=== PATIENT | female | born 1965 | race Caucasian/White ===

== ENCOUNTER 2016-11-16 15:40 | Emergency (ER) | payer OTHER ==
[~2016-11-16] VITALS: Ht 157.5 cm; Wt 60.0 kg
[~2016-11-16 15:40] MED LIST: IMOD2TAB PO; LEVO.025 PO; OMEP20TA PO; PERC7.5T13 PO; SERO150T PO; TOPI50TA4 PO; XANA1TAB6 PO
[2016-11-16 15:41] VITALS: BP 164/83; PULSE 101; RESP 17; TEMP 98.2; O2SAT 97
--- NOTE | 2016-11-16 17:31 | PD ---
HPI Chief Complaint: Complaint Time Seen by Provider: 17:31 Travel History International Travel<30 days: No Contact w/Intl Traveler<30days: No Traveled to known affect area: No History of Present Illness HPI 51 year-old female history of COPD, chronic pain, neuropathy, CAD, bipolar disorder presents emergency department for evaluation of urinary symptoms 2 weeks. Patient has had frequency, urgency, and burning. She now has low back pain. She has also had nausea and vomiting. Patient has been taking Bactrim and her symptoms have only worsened. She also reports a migraine headache. Denies chest pain or tightness. No difficulty breathing. No diarrhea. Uncertain if hematuria. No other symptoms to report. PFSH Past Medical History Arthritis: Yes Blood Disorders: No Bipolar Disorder: Yes Anxiety: Yes Depression: Yes Heart Rhythm Problems: Yes (murmur in past) Cancer: Yes (OVARIAN, CERVICAL) Cardiac Catheterization: No Cardiovascular Problems: Yes (mitral valve prolapse) High Cholesterol: Yes Chemotherapy: Yes Congestive Heart Failure: No Diabetes: No Diminished Hearing: No Endocrine: Yes (HYPOGLYCEMIA) Gastrointestinal Disorders: Yes GERD: Yes Genitourinary: Yes (PROBLEM WITH INCONTINENCE) Headaches: Yes Immune Disorder: No Musculoskeletal: Yes Neurologic: Yes Psychiatric: Yes Reproductive: No Respiratory: Yes ("LOTS OF MUCUS IN THROAT." PER PATIENT) Migraines: Yes Radiation Therapy: No Thyroid Disease: Yes Ulcer: Yes (STOMACH) Menopausal: Yes : 4 Para: 3 Miscarriage: 1 Tubal Ligation: Yes Past Surgical History Abdominal Surgery: Yes AICD: No Body Medical Devices: NOSE RING NOT WITH PATIENT Cardiac Surgery: No Coronary Artery Bypass Graft: No Ear Surgery: No Endocrine Surgery: No Eye Surgery: No Gynecologic Surgery: Yes Hysterectomy: Yes Neurologic Surgery: No Oral Surgery: No Pacemaker: No Thoracic Surgery: No Other Surgery: Yes Social History Alcohol Use: Yes (6 BEERS DURING THE WEEK- 12 BEERS ON THE WEEKEND PER PT) Tobacco Use: Yes ( 1/2 PPD) Substance Use: No (ADMITS TO MARIJUANA) Allergies-Medications (Allergen,Severity, Reaction): Coded Allergies: Lortab (Verified Allergy, Severe, 06/24/16) Phenergan (Verified Allergy, Severe, 06/24/16) Reported Meds & Prescriptions Reported Meds & Active Scripts Active Imodium A-D (Loperamide HCl) 2 Mg Tab 4 Mg PO ONCE DO NOT EXCEED 8 CAPSULES/TABLETS 24 HOURS Reported Xanax 1 mg (Alprazolam) Alprazolam 1 mg Tab 1 Tab PO Q6H PRN Percocet 7.5-325 mg (Oxycodone-Acetaminophen 7.5-325 mg) 1 Tab 1 Tab PO Q6H PRN Topamax (Topiramate) 50 Mg Tab 50 Mg PO BID Omeprazole 20 mg (Omeprazole) 20 Mg Tab 1 Tab PO DAILY Seroquel XR 150 mg (Quetiapine Fumarate) 150 Mg Tab 150 Mg PO DAILY Levothyroxine 25 mcg (Levothyroxine Sodium) 25 Mcg Tab 25 Mcg PO DAILY Review of Systems Except as stated in HPI: all other systems reviewed are Neg Physical Exam Narrative GENERAL: Well-nourished female patient, in no acute distress SKIN: Warm and dry. HEAD: Atraumatic. Normocephalic. EYES: Pupils equal and round. No scleral icterus. No injection or drainage. ENT: No nasal bleeding or discharge. Mucous membranes pink and moist. NECK: Trachea midline. No JVD. CARDIOVASCULAR: Elevated rate and rhythm. No murmur appreciated. RESPIRATORY: No accessory muscle use. Coarse to auscultation. Breath sounds equal bilaterally. GASTROINTESTINAL: Abdomen soft, nondistended. Suprapubic tenderness to palpation. Hepatic and splenic margins not palpable. MUSCULOSKELETAL: No obvious deformities. No clubbing. No cyanosis. No edema. NEUROLOGICAL: Awake and alert. No obvious cranial nerve deficits. Motor grossly within normal limits. Normal speech. PSYCHIATRIC: Appropriate mood and affect; insight and judgment normal. Data Data Last Documented VS Vital Signs Date Time Temp Pulse Resp B/P Pulse Ox O2 Delivery O2 Flow Rate FiO2 11/16/16 15:41 98.2 101 17 164/83 97 Orders Basic Metabolic Panel (Bmp) (11/16/16 17:30) Complete Blood Count With Diff (11/16/16 17:30) Urinalysis - C+S If Indicated (11/16/16 17:30) Urine Culture (11/16/16 17:45) Labs Laboratory Tests Test 11/16/16 17:45 White Blood Count 11.3 TH/MM3 Red Blood Count 4.72 MIL/MM3 Hemoglobin 15.6 GM/DL Hematocrit 45.3 % Mean Corpuscular Volume 96.0 FL Mean Corpuscular Hemoglobin 33.1 PG Mean Corpuscular Hemoglobin 34.5 % Concent Red Cell Distribution Width 12.4 % Platelet Count 335 TH/MM3 Mean Platelet Volume 7.5 FL Neutrophils (%) (Auto) 60.5 % Lymphocytes (%) (Auto) 28.8 % Monocytes (%) (Auto) 8.9 % Eosinophils (%) (Auto) 1.3 % Basophils (%) (Auto) 0.5 % Neutrophils # (Auto) 6.8 TH/MM3 Lymphocytes # (Auto) 3.3 TH/MM3 Monocytes # (Auto) 1.0 TH/MM3 Eosinophils # (Auto) 0.1 TH/MM3 Basophils # (Auto) 0.1 TH/MM3 CBC Comment DIFF FINAL Differential Comment Urine Color YELLOW Urine Turbidity HAZY Urine pH 6.0 Urine Specific [place] 1.008 Urine Protein NEG mg/dL Urine Glucose (UA) NEG mg/dL Urine Ketones NEG mg/dL Urine Occult Blood TRACE Urine Nitrite NEG Urine Bilirubin NEG Urine Urobilinogen LESS THAN 2.0 MG/DL Urine Leukocyte Esterase LARGE Urine RBC 3 /hpf Urine WBC /hpf Urine WBC Clumps FEW Urine Squamous Epithelial <1 /hpf Cells Urine Bacteria FEW /hpf Microscopic Urinalysis Comment CULTURE INDICATED Sodium Level 139 MEQ/L Potassium Level 3.8 MEQ/L Chloride Level 105 MEQ/L Carbon Dioxide Level 22.3 MEQ/L Anion Gap 12 MEQ/L Blood Urea Nitrogen 9 MG/DL Creatinine 0.91 MG/DL Estimat Glomerular Filtration 65 ML/MIN Rate Random Glucose 86 MG/DL Calcium Level 9.4 MG/DL [facility] Medical Decision Making Medical Screen Exam Complete: Yes Emergency Medical Condition: Yes Medical Record Reviewed: Yes Differential Diagnosis Cystitis versus vaginitis versus pyelonephritis versus STD versus colitis Narrative Course 51-year-old female presents to emergency department for evaluation. Workup was initiated in triage. Once a medical bed becomes available, patient will be transferred and care assumed by the provider. Diagnosis Primary Impression: Dysuria Disposition: 07 AGAINST MEDICAL ADVICE Condition: Stable Emily Mcfarlane Nov 16, 2016 17:31
[2016-11-16 18:16] LABS: AUTOMATED NEUTROPHIL # 6.8 TH/MM3 (1.8-7.7); BASOPHIL # 0.1 TH/MM3 (0-0.2); BASOPHIL % 0.5 % (0.0-2.0); EOSINOPHIL # 0.1 TH/MM3 (0-0.4); EOSINOPHIL % 1.3 % (0.0-4.0); HEMATOCRIT 45.3 % (35.0-46.0); HEMO FLAGS DIFF FINAL; LYMPH % 28.8 % (9.0-44.0); LYMPHOCYTE # 3.3 TH/MM3 (1.0-4.8); MEAN CORPUSCULAR HEMOGLOBIN 33.1 PG (27.0-34.0); MEAN CORPUSCULAR HGB CONC 34.5 % (32.0-36.0); MONO % 8.9 % (0.0-8.0); NEUT % 60.5 % (16.0-70.0); PLATELET COUNT 335 TH/MM3 (150-450); RED BLOOD COUNT 4.72 MIL/MM3 (4.00-5.30); RED CELL DISTRIBUTION WIDTH 12.4 % (11.6-17.2); WHITE BLOOD COUNT 11.3 TH/MM3 (4.0-11.0)
[2016-11-16 18:26] LABS: BACTERIA, URINE FEW /hpf; BLOOD, URINE TRACE (NEG); COMMENT (UR) CULTURE INDICATED; CULTURE IF INDICATED CULTURE INDICATED; GLUCOSE,URINE NEG (NEG); KETONE, URINE NEG (NEG); NITRITE,URINE NEG (NEG); SQUAMOUS EPITHELIAL CELL URINE <1 /hpf (0-5); URINE COLOR YELLOW (YELLW/STRAW)
[2016-11-16 18:33] LABS: BICARBONATE 22.3 MEQ/L (21.0-32.0); POTASSIUM 3.8 MEQ/L (3.5-5.1)
== END 2016-11-16 22:05 | disposition left against medical advice (07) ==
LOC: NETRI 15:40
DX: R30.0 Dysuria (principal); B96.20 Unspecified Escherichia coli [E. coli] as the cause of diseases classified elsewhere; I25.10 Atherosclerotic heart disease of native coronary artery without angina pectoris; J44.9 Chronic obstructive pulmonary disease, unspecified; F31.9 Bipolar disorder, unspecified; E78.00 Pure hypercholesterolemia, unspecified; E16.2 Hypoglycemia, unspecified; F41.8 Other specified anxiety disorders; F17.210 Nicotine dependence, cigarettes, uncomplicated; F10.10 Alcohol abuse, uncomplicated
CPT/HCPCS: 80048; 81001; 85025; 87077; 87086; 87186; 99283

== ENCOUNTER 2017-04-20 12:38 | Emergency (ER) | payer OTHER ==
[~2017-04-20] VITALS: Ht 157.5 cm; Wt 66.0 kg
[2017-04-20 12:52] VITALS: BP 113/70; PULSE 87; RESP 16; TEMP 98.7; O2SAT 93
[2017-04-20] MEDS ORDERED: PERC7.5T13 PO (13:13)
[2017-04-20] MEDS ORDERED: XANA1TAB2 PO (13:13)
[2017-04-20] MEDS ORDERED: TOPA50TA7 PO (13:13)
[2017-04-20] MEDS ORDERED: NEUR100C PO (13:13)
[2017-04-20] MEDS ORDERED: SERO300T PO (13:13)
--- NOTE | 2017-04-20 13:36 | PD ---
HPI Chief Complaint: GI Complaint Time Seen by Provider: 13:31 Travel History International Travel<30 days: No Contact w/Intl Traveler<30days: No Traveled to known affect area: No History of Present Illness HPI This 51-year-old female says she been feeling weak and tired for about a week. Says a week ago she had some lab work done at Dr. Colón's office and was told her white count was high and is concerned she might have leukemia. She has a history of neck pain and has apparently pinched nerve C5 through 7 bulging disks. She takes Percocet 4 times a day as well as Seroquel and Topamax and Xanax area she says she feels tired all the time. She smokes half a pack a day. She has been a heavy drinker in the past. She says it recently she is not able to drink very much. She says that her abdomen has become quite distended over the past month. She says she drools a lot. She noted some blood in the pool but says it was a fairly small amount. PFSH Past Medical History Arthritis: Yes Blood Disorders: No Bipolar Disorder: Yes Anxiety: Yes Depression: Yes Heart Rhythm Problems: Yes (murmur in past) Cancer: Yes (OVARIAN, CERVICAL) Cardiac Catheterization: No Cardiovascular Problems: Yes (mitral valve prolapse) High Cholesterol: Yes Chemotherapy: Yes Chest Pain: Yes Congestive Heart Failure: No COPD: Yes Diabetes: No Diminished Hearing: No Diverticulitis: Yes (& COLITIS) Endocrine: Yes (HYPOGLYCEMIA) Gastrointestinal Disorders: Yes GERD: Yes Genitourinary: Yes (PROBLEM WITH INCONTINENCE) Headaches: Yes Immune Disorder: No Medical other: Yes (NECK NERVE DAMAGE, DECREASE CIRCULATION LEFT ARM) Musculoskeletal: Yes Neurologic: Yes Psychiatric: Yes Reproductive: No Respiratory: Yes ("LOTS OF MUCUS IN THROAT." PER PATIENT) Migraines: Yes Radiation Therapy: No Thyroid Disease: Yes Ulcer: Yes (STOMACH) ?: Not Menopausal: Yes : 4 Para: 3 Miscarriage: 1 Tubal Ligation: Yes Past Surgical History Abdominal Surgery: Yes AICD: No Body Medical Devices: NOSE RING NOT WITH PATIENT Cardiac Surgery: No Coronary Artery Bypass Graft: No Ear Surgery: No Endocrine Surgery: No Eye Surgery: No Gynecologic Surgery: Yes Hysterectomy: Yes Neurologic Surgery: No Oral Surgery: No Pacemaker: No Thoracic Surgery: No Other Surgery: Yes Family History Family Myocardial Infarction: Yes (father ) Social History Alcohol Use: Yes (6 BEERS DURING THE WEEK- 12 BEERS ON THE WEEKEND PER PT) Tobacco Use: Yes ( 1/2 PPD) Substance Use: Yes (MARIJUANA) Allergies-Medications (Allergen,Severity, Reaction): Coded Allergies: Lortab (Verified Allergy, Intermediate, ITCHING, 04/20/17) Phenergan (Verified Allergy, Intermediate, ITCHING, 04/20/17) Reported Meds & Prescriptions Reported Meds & Active Scripts Active Reported Levothyroxine (Levothyroxine Sodium) 25 Mcg Tab 25 Mcg PO DAILY Percocet (Oxycodone-Acetaminophen) 7.5-325 mg Tab 1 Tab PO Q6H PRN Seroquel (Quetiapine Fumarate) 300 Mg Tab 300 Mg PO HS Topamax (Topiramate) 50 Mg Tab 50 Mg PO TID Neurontin (Gabapentin) 100 Mg Cap 100 Mg PO TID Xanax (Alprazolam) 1 Mg Tab 1 Mg PO BID PRN Review of Systems General / Constitutional: No: Fever, Chills Eyes: No: Diploplia HENT: No: Headaches, Lightheadedness Cardiovascular: No: Chest Pain or Discomfort, Palpitations Respiratory: Positive: Cough Gastrointestinal: Positive: Nausea, No: Vomiting, Diarrhea Genitourinary: No: Frequency Musculoskeletal: Positive: Myalgias, Pain Skin: No Rash, No Itching Neurologic: Positive: Weakness, Dizziness Endocrine: No: Heat Intolerance, Cold Intolerance Hematologic/Lymphatic: No: Easy Bruising Physical Exam Narrative GENERAL: Well-developed female SKIN: Focused skin assessment warm/dry. HEAD: Atraumatic. Normocephalic. EYES: Pupils equal and round. No scleral icterus. No injection or drainage. ENT: No nasal bleeding or discharge. Mucous membranes pink and moist. NECK: Trachea midline. No JVD. CARDIOVASCULAR: Regular rate and rhythm. No murmur appreciated. RESPIRATORY: No accessory muscle use. Clear to auscultation. Breath sounds equal bilaterally. GASTROINTESTINAL: Abdomen is distended no discrete masses felt Hepatic and splenic margins not palpable. On rectal exam stool is brown and guaiac negative MUSCULOSKELETAL: No obvious deformities. No clubbing. No cyanosis. No edema. NEUROLOGICAL: Awake and alert. No obvious cranial nerve deficits. Motor grossly within normal limits. Normal speech. PSYCHIATRIC: Appropriate mood and affect; insight and judgment normal. Data Data Last Documented VS Vital Signs Date Time Temp Pulse Resp B/P Pulse Ox O2 Delivery O2 Flow Rate FiO2 04/20/17 12:52 98.7 87 16 113/70 93 Orders Complete Blood Count With Diff (04/20/17 13:31) Comprehensive Metabolic Panel (04/20/17 13:31) Urinalysis - C+S If Indicated (04/20/17 13:31) Magnesium (Mg) (04/20/17 13:31) Thyroid Stimulating Hormone (04/20/17 13:31) Chest, Single Ap (04/20/17 13:31) Ct Abd/Pel W Iv Contrast(Rout) (04/20/17 13:31) Labs Laboratory Tests Test 04/20/17 04/20/17 13:25 13:40 Urine Collection Type CLEAN CATCH Urine Color YELLOW Urine Turbidity CLEAR Urine pH 5.5 Urine Specific [place] 1.009 Urine Protein NEG mg/dL Urine Glucose (UA) NEG mg/dL Urine Ketones NEG mg/dL Urine Occult Blood NEG Urine Nitrite NEG Urine Bilirubin NEG Urine Leukocyte Esterase TRACE Urine WBC 0-2 /hpf Urine Squamous Epithelial 0-5 /hpf Cells Microscopic Urinalysis Comment CULT NOT INDICATED White Blood Count 9.9 TH/MM3 Red Blood Count 4.22 MIL/MM3 Hemoglobin 13.6 GM/DL Hematocrit 41.1 % Mean Corpuscular Volume 97.5 FL Mean Corpuscular Hemoglobin 32.2 PG Mean Corpuscular Hemoglobin 33.0 % Concent Red Cell Distribution Width 12.3 % Platelet Count 255 TH/MM3 Mean Platelet Volume 8.0 FL Neutrophils (%) (Auto) 58.0 % Lymphocytes (%) (Auto) 30.0 % Monocytes (%) (Auto) 10.0 % Eosinophils (%) (Auto) 1.4 % Basophils (%) (Auto) 0.6 % Neutrophils # (Auto) 5.7 TH/MM3 Lymphocytes # (Auto) 3.0 TH/MM3 Monocytes # (Auto) 1.0 TH/MM3 Eosinophils # (Auto) 0.1 TH/MM3 Basophils # (Auto) 0.1 TH/MM3 CBC Comment DIFF FINAL Differential Comment Sodium Level 143 MEQ/L Potassium Level 3.8 MEQ/L Chloride Level 108 MEQ/L Carbon Dioxide Level 23.9 MEQ/L Anion Gap 11 MEQ/L Blood Urea Nitrogen 10 MG/DL Creatinine 0.69 MG/DL Estimat Glomerular Filtration 89 ML/MIN Rate Random Glucose 89 MG/DL Calcium Level 8.8 MG/DL Magnesium Level 2.5 MG/DL Total Bilirubin 0.2 MG/DL Aspartate Amino Transf 23 U/L (AST/SGOT) Alanine Aminotransferase 26 U/L (ALT/SGPT) Alkaline Phosphatase 93 U/L Total Protein 7.1 GM/DL Albumin 3.6 GM/DL Thyroid Stimulating Hormone 4.320 uIU/ML 3rd Gen [facility] Medical Decision Making Medical Screen Exam Complete: Yes Emergency Medical Condition: Yes Medical Record Reviewed: Yes Differential Diagnosis Differential includes electrolyte imbalance, medication, hypothyroidism Narrative Course Patient's TSH is elevated consistent with hypothyroidism. She is on 0.25 daily. Ambien recommend that she take one half tablets a day and follow-up with her own medical doctor. I had originally ordered a T scan of her abdomen because she had told me that her abdomen had become distended over the past month area she went to the CT scan and the IV infiltrated so the scan was not performed. Her blood work has come back normal including liver function tests so I will defer the scan for now. Diagnosis Primary Impression: Hypothyroidism Qualified Code: E03.9 - Hypothyroidism, unspecified type Additional Instructions: Increase Synthroid to one and one half tablets daily Disposition: 01 DISCHARGE HOME Condition: Stable Abdirashid Myers MD Apr 20, 2017 13:36
[2017-04-20] MEDS ORDERED: LEVO25TA4 PO (13:48)
[2017-04-20 13:54] LABS: AUTOMATED NEUTROPHIL # 5.7 TH/MM3 (1.8-7.7); BASOPHIL # 0.1 TH/MM3 (0-0.2); BASOPHIL % 0.6 % (0.0-2.0); EOSINOPHIL # 0.1 TH/MM3 (0-0.4); EOSINOPHIL % 1.4 % (0.0-4.0); HEMATOCRIT 41.1 % (35.0-46.0); HEMO FLAGS DIFF FINAL; MEAN CELL VOLUME 97.5 FL (80.0-100.0); MEAN CORPUSCULAR HEMOGLOBIN 32.2 PG (27.0-34.0); PLATELET COUNT 255 TH/MM3 (150-450); RED BLOOD COUNT 4.22 MIL/MM3 (4.00-5.30); RED CELL DISTRIBUTION WIDTH 12.3 % (11.6-17.2); WHITE BLOOD COUNT 9.9 TH/MM3 (4.0-11.0)
[2017-04-20 13:59] LABS: BLOOD, URINE NEG (NEG); GLUCOSE,URINE NEG (NEG); KETONE, URINE NEG (NEG); NITRITE,URINE NEG (NEG); PH, URINE 5.5 (5.0-8.5)
[2017-04-20 14:05] LABS: CHLORIDE 108 MEQ/L (98-107); POTASSIUM 3.8 MEQ/L (3.5-5.1); SODIUM (NA) 143 MEQ/L (136-145)
[2017-04-20 14:10] LABS: ANION GAP 11 MEQ/L (5-15); BICARBONATE 23.9 MEQ/L (21.0-32.0); BLOOD UREA NITROGEN 10 MG/DL (7-18); MAGNESIUM 2.5 MG/DL (1.5-2.5)
[2017-04-20 14:13] LABS: ALT (GPT) 26 U/L (10-53); AST (GOT) 23 U/L (15-37); GLOMERULAR FILTRATION RATE 89 ML/MIN (>89)
[2017-04-20 14:15] LABS: TOTAL BILIRUBIN ADULT 0.2 MG/DL (0.2-1.0)
[2017-04-20 14:16] LABS: ALKALINE PHOSPHATASE 93 U/L (45-117)
--- NOTE | 2017-04-20 14:37 | RADRPT ---
EXAM DATE/TIME: 04/20/2017 14:19 [place] COMPARISON: CHEST SINGLE AP, June 24, 2016, 11:20. INDICATIONS : Cough, chest pain, hemoptysis. MEDICAL HISTORY : smoker SURGICAL HISTORY : None. ENCOUNTER: Initial ACUITY: 1 week PAIN SCORE: 6/10 LOCATION: Bilateral chest FINDINGS: A single view of the chest demonstrates the lungs to be symmetrically aerated without evidence of mas s, infiltrate or effusion. The cardiomediastinal contours are unremarkable. Osseous structures are intact. CONCLUSION: Normal examination for a patient of this age. No significant change has occurred. Coleman Morales MD on April 20, 2017 at 14:35 Board Certified Radiologist. This report was verified electronically.
[2017-04-20 14:41] LABS: METHOD OF COLLECTION CLEAN CATCH
[2017-04-20 14:42] LABS: COMMENT (UR) CULT NOT INDICATED; CULTURE IF INDICATED CULT NOT INDICATED; SQUAMOUS EPITHELIAL CELL URINE 0-5 /hpf (0-5); URINE COLOR YELLOW (YELLW/STRAW); WBC, URINE 0-2 /hpf (0-5)
[2017-04-20 16:06] VITALS: BP 120/75
== END 2017-04-20 16:12 | disposition home or self-care (01) ==
LOC: PHED 12:38
DX: E08.9 Diabetes mellitus due to underlying condition without complications (principal); F31.9 Bipolar disorder, unspecified; F41.8 Other specified anxiety disorders; I34.1 Nonrheumatic mitral (valve) prolapse; E78.00 Pure hypercholesterolemia, unspecified; J44.9 Chronic obstructive pulmonary disease, unspecified; E16.2 Hypoglycemia, unspecified; K52.9 Noninfective gastroenteritis and colitis, unspecified; F17.210 Nicotine dependence, cigarettes, uncomplicated; F10.10 Alcohol abuse, uncomplicated; F12.10 Cannabis abuse, uncomplicated
CPT/HCPCS: 71010; 80053; 81001; 83735; 84443; 85025

== ENCOUNTER 2018-11-21 22:10 | Inpatient (IN) ==
[2018-11-21] MEDS ORDERED: fentaNYL Citrate Inj 100 MCG/2 ML Ampul IV.PUSH ONE (22:49)
--- NOTE | 2018-11-21 22:49 | ED ---
HPI General Stated complaint: Medical/Surgery Time Seen by Provider: 11/21/18 22:35 Source: patient Mode of arrival: EMS Limitations: no limitations History of Present Illness HPI narrative: The patient is a 53 year old female who presents to the [facility] emergency department with a history of reportedly tripping over a tree branch when she was walking her dog at approximately 3 PM today. The patient reports that she heard a pop and had severe pain in the left knee. The patient went to [facility] and was diagnosed with a depressed lateral tibial plateau fracture with extension to the proximal diaphysis. The patient was accepted in transfer to this facility by the orthopedic physician on-call, Dr. Singh as well as a hospitalist that will be admitting the patient, Dr. Solares. The patient denies any other injuries associated with the fall. She denies hitting her head or losing consciousness. She denies having any new neck or back pain. The patient does report a long-standing history of chronic neck and back pain as well as fibromyalgia on chronic opiate treatment for relief of pain. She reports that she is on oxycodone 10 mg 4 times a day. On review of systems otherwise, the patient denies having any known recent fevers, cough, congestion, chest pain, shortness of breath, abdominal pain, vomiting, diarrhea, urinary symptoms, or neurologic symptoms. Related Data Allergies Allergy/AdvReac Type Severity Reaction Status Date / Time acetaminophen Allergy Intermediate ITCHING Unverified 11/21/18 22:41 hydrocodone Allergy Intermediate ITCHING Unverified 11/21/18 22:41 promethazine Allergy Intermediate ITCHING Unverified 11/21/18 22:41 Review of Systems ROS: all other systems reviewed are negative [facility] Medical History Medical History Anxiety (Acute) Bipolar 1 disorder (Acute) COPD (chronic obstructive pulmonary disease) (Acute) Cervical cancer (Acute) Chronic neck and back pain (Acute) Fibromyalgia (Acute) History of hysterectomy (Acute) Migraine (Acute) PTSD (post-traumatic stress disorder) (Acute) Social History Social History Substance History: No History of Abuse Second Hand Smoke Exposure: No Smoking Status: Former smoker Tobacco Type: E-Cigarettes Smoking End Date: the patient reports that she quit smoking last year and now vapes. How Often Do You Have a Drink Containing Alcohol: Monthly or less Recent Travel in [facility] within the Last 8 Weeks: No Exam Const General: cooperative, no acute distress and well developed Nutritional Appearance: well nourished Orientation: alert, awake and oriented x3 [facility] Head: normocephalic and atraumatic Nose: no nasal discharge and no epistaxis Mouth: moist mucous membranes Throat: posterior oropharynx normal and uvula midline Eyes Sclera: normal sclerae Pupils: PERRL Neck Neck: no meningeal signs, trachea midline and no JVD Resp Effort & Inspection: no use of accessory muscles Auscultation: clear to auscultation bilaterally Cardio Rate: regular rate Rhythm: regular rhythm Heart Sounds: no murmurs GI Inspection: non-distended Palpation: soft, no hepatosplenomegaly, no guarding, not rigid and nontender Auscultation: normal bowel sounds Back/Spine/Pelvis Back: no CVA tenderness Cervical Spine: No cervical spinal tenderness Thoracic/Lumbar Spine: No thoracic spinal tenderness and No lumbar spinal tenderness Skin General: dry skin (warm) Neuro General: alert, awake, oriented x3 and other (Grossly nonfocal) Speech: speech normal Motor: no movement abnormalities noted Extrem General: normal to inspection, no calf tenderness, no clubbing, no cyanosis and no edema Right upper extremity: normal to inspection and full ROM Left upper extremity: normal to inspection (Except in the area of interest, the left knee which has a cannabis knee splint in place. The patient has 2+ pulses in all 4 extremities. The patient has less than 3-second capillary refill of her digits, intact sensation over all digits.) and full ROM Right lower extremity: normal to inspection and full ROM Left lower extremity: knee (The patient has edema, tenderness on palpation of the left knee, ballotable patella noted consistent with effusion. The patient had a knee immobilizer in place that was gently opened to allow for further evaluation of the patient's knee, distal femur, upper paiz. The patient has soft compartments. No erythema or ecchymosis.) Psych Mood: congruent mood Affect: normal affect Judgment: judgment good Medical Decision Making MDM Narrative Medical decision making narrative: During the course of the patient's emergency department visit, the patient's history, examination, and differential diagnosis were reviewed with the patient. The patient was placed on a cardiac cath technologist with oximetry and frequent blood pressure monitoring. The patient's transfer information was reviewed by me. The patient was initially provided fentanyl for pain, Zofran for nausea Patient's diagnostic studies from the other facility revealed an elevated white blood cell count of 15,000, hemoglobin 13.4, platelets 348 with a normal differential, PT 12.6, INR 0.9, PTT 25.1. Basic metabolic profile is remarkable for creatinine of 0.92. Left knee x-ray revealed an acute mildly displaced lateral tibial plateau fracture with extension to the proximal tibial diaphysis, left tib-fib x-ray revealed redemonstration of acute mildly displaced and depressed lateral tibial plateau fracture with extension to the proximal diaphysis. A CT of the knee without contrast of the left side reveals an acute lateral tibial plateau fracture with significant articular surface depression measuring approximately 11 mm. Additionally acute mild fracture comminution and mild displacement in the intercondylar area of the proximal tibia to include mild displacement of the distal tibial bone attachment site of the ACL. The patient's case including history, pertinent physical examination findings, and laboratory studies were discussed with Dr. Solares. It was agreed that the patient would be admitted to the hospitalist service. The patient's results were discussed with the patient, including the plan of care. I explained that further testing and/ or monitoring is indicated based on the patient's history, examination, and/ or laboratory findings. Therefore, I recommended admission for additional evaluation. The patient expressed understanding and was agreeable with this plan. The patient was admitted to the hospital in stable condition and sent to a bed under the care of the [facility] service. Medical Screen Exam Complete: Yes Emergency Medical Condition: Yes Differential Diagnosis Differential Diagnosis: Fracture, versus patellar dislocation, versus effusion Medical Records Medical records reviewed: Yes I reviewed the patient's medical records. Lab Data Lab results reviewed: Yes I reviewed the patient's lab results. Discharge Plan Discharge Disposition Patient Disposition: ED Admit(ED Internal Use Only) Discharge Order Discharge Orders: ED Use Only Admit Order (Routine); Ordered 11/21/18 Ordered By: Patti Wilkins Discharge Details Diagnosis: Fracture of tibial plateau Physicians Team ED Provider: Patti Wilkins Primary Care Provider: UNKNOWN, Attending Provider: Eliana Solares Status ED Status: Admitted Patient
[2018-11-21] MEDS ORDERED: Acetaminophen 325 MG Tablet PO PRN (23:49)
[2018-11-21] MEDS ORDERED: Bisacodyl 10 MG Supp RECTAL PRN (23:49)
--- NOTE | 2018-11-21 23:56 | P.HPIM ---
History of Present Illness Primary Care Physician: UNKNOWN Ms. Harper is a 53 y/o female with a history of anxiety, bipolar disorder, COPD, cervical and ovarian cancer s/p radiation and hysterectomy and bilateral oophorectomy, chronic neck and back pain, fibromyalgia, and migraine headaches who presented to the ER at [facility] and was found to have a A CT of the knee without contrast of the left side reveals an acute lateral tibial plateau fracture with significant articular surface depression measuring approximately 11 mm. Additionally acute mild fracture comminution and mild displacement in the intercondylar area of the proximal tibia to include mild displacement of the distal tibial bone attachment site of the ACL. Dr. Kwok, orthopedic surgeon, wanted the patient to see Dr. Collazo here given complicated nature of the fracture. The patient is admitted to the hospitalist service for medical management. The patient is seen in her hospital room. She states she was walking her daughter's pit bull and it pull her over some tree roots causing her to trip and fall. She hear a "snap" come from her left knee region with subsequent severe sharp left knee pain and inability to bear weight on left leg. The patient states that Morphine 2 mg is only relieving her pain for 30 minutes and is asking for a stronger dosage. Her pain is worsened by movement. Inpatient Certification Inpatient Certification: I certify that the inpatient services were ordered in accordance with Medicare regulations governing the order. This includes certification that hospital inpatient services are reasonable and necessary and in the case of services not specified as inpatient-only under 42 CFR 419.22(n), that they are appropriately provided as inpatient services in accordance to with the 2-midnight benchmark under 43 CFR 412.3(e) Estimated Total Length of Stay (Days): 3 Plans for Post Hospital Care: Home Review of Systems Review of Systems: all other systems reviewed are negative [facility] Medical History Medical History Anxiety (Acute) Benign colon polyp (Acute) Bipolar 1 disorder (Acute) COPD (chronic obstructive pulmonary disease) (Acute) Cervical cancer (Acute) Chronic neck and back pain (Acute) Fibromyalgia (Acute) Migraine (Acute) PTSD (post-traumatic stress disorder) (Acute) Surgical History Surgical History History of exploratory laparotomy (Acute) History of hysterectomy (Acute) Family History Family History Daughter Bipolar disorder Mother COPD (chronic obstructive pulmonary disease) Dementia Social History Social History Substance History: No History of Abuse Second Hand Smoke Exposure: No Smoking Status: Former smoker Tobacco Type: E-Cigarettes years: 25 Smoking End Date: the patient reports that she quit smoking last year and now vapes. How Often Do You Have a Drink Containing Alcohol: 2 to 3 times a week Recent Travel in [place] within the Last 8 Weeks: No Immunization History Tetanus Immunization: >5 Years Medications and Allergies Allergies Allergy/AdvReac Type Severity Reaction Status Date / Time hydrocodone Allergy Intermediate ITCHING Unverified 11/21/18 22:41 promethazine Allergy Intermediate ITCHING Unverified 11/21/18 22:41 Home Medications Medication Instructions Recorded Confirmed Type alprazolam 0.5 mg PO BID PRN 11/21/18 11/21/18 History bupropion HCl 300 mg PO QAM 11/21/18 11/21/18 History cyclobenzaprine 10 mg PO TID PRN 11/21/18 11/21/18 History fenofibrate 145 mg PO DAILY 11/21/18 11/21/18 History gabapentin 300 mg PO TID 11/21/18 11/21/18 History mirtazapine 45 mg PO HS 11/21/18 11/22/18 History montelukast 10 mg PO QPM 11/21/18 11/21/18 History quetiapine [Seroquel] 25 mg PO BID 11/21/18 11/21/18 History quetiapine [Seroquel] 50 mg PO HS 11/21/18 11/21/18 History topiramate 150 mg PO HS 11/21/18 11/21/18 History verapamil 40 mg PO TID 11/21/18 11/21/18 History oxycodone-acetaminophen [Percocet] 1 tab PO Q4-6H PRN MDD 4 11/22/18 11/22/18 History Active Medications: Active Medications Acetaminophen (Tylenol) 650 mg PO Q4H PRN PRN Reason: Temp > 100.4 Al Hydroxide/Mg Hydroxide (Milk Of Magnesia Liq) 30 ml PO Q12H PRN PRN Reason: Mild Constipation Bisacodyl (Dulcolax Supp) 10 mg RECTAL DAILY PRN PRN Reason: SEVERE CONSITIPATION Sodium Chloride (Ns Inj) 1,000 mls @ 100 mls/hr IV.CONT .Q10H SHELIA Ondansetron HCl (Zofran Inj) 4 mg IV.PUSH Q6H PRN PRN Reason: NAUSEA OR VOMITING Sennosides (Senokot) 17.2 mg PO Q12H PRN PRN Reason: Moderate Constipation Sodium Chloride (Ns Flush) 2 ml IV.FLUSH BID SHELIA Sodium Chloride (Ns Flush) 2 ml IV.FLUSH PRN PRN PRN Reason: FLUSH AFTER USING IV ACCESS Physical Exam Vital signs: Vital Signs 11/21/18 22:10 11/21/18 22:50 Temperature 98.2 F Pulse Rate 100 H 93 H Respiratory Rate 20 18 Blood Pressure 187/89 H 160/110 H Pulse Oximetry 99 98 Intake & Output 11/21/18 11/21/18 11/22/18 06:59 18:59 06:59 Weight 68.039 kg Narrative: GENERAL: This is a chronically ill appearing female patient, complaining of severe left knee pain. SKIN: No rashes. Cool and dry. HEAD: Atraumatic. Normocephalic. EYES: No scleral icterus. No injection or drainage. ENT: Nose without bleeding, purulent drainage. NECK: Trachea midline. No JVD or lymphadenopathy. CARDIOVASCULAR: Regular rate and rhythm without murmurs, gallops, or rubs. RESPIRATORY: Breath sounds diminished at bases but equal bilaterally. No wheezes , rales, or rhonchi. GASTROINTESTINAL: Abdomen soft, non-tender, nondistended. No guarding. MUSCULOSKELETAL: Left leg in knee immobilizer; sensation intact to LLE, PP+2 NEUROLOGICAL: Awake and alert. Motor and sensory grossly within normal limits. Normal speech. . Caprini VTE Risk Assessment Caprini VTE Risk Assessment: Moderate/High Risk (score >= 2) Caprini Risk Assessment Model: Point Value = 1 Point Value = 2 Point Value = 3 Point Value = 5 Age 41-60 Minor surgery BMI > 25 kg/m2 Swollen legs Varicose veins or History of unexplained or recurrent spontaneous Oral contraceptives or hormone replacement Sepsis (< 1 month) Serious lung disease, including pneumonia (< 1 month) Abnormal pulmonary function Acute myocardial infarction Congestive heart failure (< 1 month) History of inflammatory bowel disease Medical patient at bed rest Age 61-74 Arthroscopic surgery Major open surgery (> 45 min) Laparoscopic surgery (> 45 min) Malignancy Confined to bed (> 72 hours) Immobilizing plaster cast Central venous access Age >= 75 History of VTE Family history of VTE Factor V Leiden Prothrombin [id number] Lupus anticoagulant Anticardiolipin antibodies Elevated serum homocysteine Heparin-induced thrombocytopenia Other congenital or acquired thrombophilia Stroke (< 1 month) Elective arthroplasty Hip, pelvis, or leg fracture Acute spinal cord injury (< 1 month) Prophylaxis Regimen: Total Risk Factor Score Risk Level Prophylaxis Regimen 0-1 Low Early ambulation 2 Moderate Order ONE of the following: *Sequential Compression Device (SCD) *Heparin 5000 units SQ BID 3-4 Higher Order ONE of the following medications: *Heparin 5000 units SQ TID *Enoxaparin/Lovenox 40 mg SQ daily (WT < 150 kg, CrCl > 30 mL/min) *Enoxaparin/Lovenox 30 mg SQ daily (WT < 150 kg, CrCl > 10-29 mL/min) *Enoxaparin/Lovenox 30 mg SQ BID (WT < 150 kg, CrCl > 30 mL/min) AND/OR *Sequential Compression Device (SCD) 5 or more Highest Order ONE of the following medications: *Heparin 5000 units SQ TID (Preferred with Epidurals) *Enoxaparin/Lovenox 40 mg SQ daily (WT < 150 kg, CrCl > 30 mL/min) *Enoxaparin/Lovenox 30 mg SQ daily (WT < 150 kg, CrCl > 10-29 mL/min) *Enoxaparin/Lovenox 30 mg SQ BID (WT < 150 kg, CrCl > 30 mL/min) AND *Sequential Compression Device (SCD) Assessment and Plan Plan Ms. Harper is a 53 y/o female with a history of anxiety, PTSD, bipolar disorder, COPD, cervical and ovarian cancer s/p radiation and hysterectomy and bilateral oophorectomy, chronic neck and back pain, fibromyalgia, and migraine headaches who presented to the ER at [facility] and was found to have a A CT of the knee without contrast of the left side reveals an acute lateral tibial plateau fracture with significant articular surface depression measuring approximately 11 mm. Additionally acute mild fracture comminution and mild displacement in the intercondylar area of the proximal tibia to include mild displacement of the distal tibial bone attachment site of the ACL. Dr. Kwok, orthopedic surgeon, wanted the patient to see Dr. Collazo here given complicated nature of the fracture. The patient is admitted to the hospitalist service for medical management. Left lateral tibial plateau fracture with significant articular surface depression -consult to Dr. Collazo, orthopedic surgeon -assistance appreciated -Continue home as needed Percocet and PRN morphine for breakthrough pain -NPO -consult to PT Bipolar disorder PTSD Anxiety -Resume home Seroquel, Wellbutrin, Remeron, and Xanax Migraines -Resume home Topamax Chronic pain Fibromyalgia Neuropathy -Resume home as needed Percocet, gabapentin, and as needed Flexeril COPD -Continue home Singulair and add as needed duo nebulizers DVT prophylaxis -SCD and on non-operative leg *Percocet and Xanax verified by me with [employer] database
[2018-11-22] MEDS ORDERED: Morphine Sulfate Inj 2 MG/ML Vial IV.PUSH PRN ×2 (00:35)
[2018-11-22] MEDS: QUEtiapine 25 MG Tablet PO SCH ×4 (00:43→20:20)
[2018-11-22] MEDS: Topiramate 100 MG Tablet PO SCH ×2 (00:57→20:21)
[2018-11-22] MEDS: buPROPion 150 MG 12 HR Tablet PO SCH ×3 (00:57→20:21)
[2018-11-22] MEDS: oxyCODONE/Acetaminophen 10/325 Tablet PO PRN ×5 (02:03→18:42)
[2018-11-22] MEDS: Morphine Sulfate Inj 2 MG/ML Vial IV.PUSH PRN ×5 (03:39→20:23)
--- NOTE | 2018-11-22 05:11 | P.PNADD ---
Addendum to Inpatient Note Reason for Addendum: Additional Documentation Additional information: Patient seen and examined. Please see KEN Low history and physical for further details. Plan of care was discussed and I am in agreement.
[2018-11-22] MEDS: Sod Chloride 0.9% Inj 1,000 ML IV.CONT SCH ×3 (06:13→20:21)
[2018-11-22 06:48] LABS: Baso # (Auto) 0.1 th/mm3 (0.0-0.2); Baso % (Auto) 0.6 % (0.0-2.0); Eos # (Auto) 0.1 th/mm3 (0.0-0.4); Eos % (Auto) 1.1 % (0.0-4.0); Hematocrit 37.4 % (35.0-46.0); Hemoglobin 12.6 gm/dL (11.6-15.3); Lymph # (Auto) 2.1 th/mm3 (1.0-4.8); Lymph % (Auto) 23.3 % (9.0-44.0); Mean Corpuscular HGB Conc 33.8 % (32.0-36.0); Mean Corpuscular Hemoglobin 32.2 pg (27.0-34.0); Mean Corpuscular Volume 95.3 fL (80.0-100.0); Mean Platelet Volume 7.5 fL (7.0-11.0); Mono % (Auto) 11.5 % (0.0-8.0); Neut # (Auto) 5.6 th/mm3 (1.8-7.7); Neut % (Auto) 63.5 % (16.0-70.0); Platelet Count 305 th/mm3 (150-450); Red Blood Count 3.93 mil/mm3 (4.00-5.30); Red Cell Distribution Width 12.5 % (11.6-17.2); White Blood Count 8.8 th/mm3 (4.0-11.0)
[2018-11-22 07:17] LABS: Calcium 8.3 mg/dL (8.5-10.1); Carbon Dioxide 23.2 meq/L (21.0-32.0); Potassium 3.7 meq/L (3.5-5.1)
[2018-11-22] MEDS: Ketorolac Inj 30 MG/ML (IVP) Vial IV.PUSH SCH ×3 (07:38→18:42)
--- NOTE | 2018-11-22 08:44 | P.CONOP ---
[facility] Orthopedics Consult Note - [facility] Consult date: 11/22/18 Chief complaint: Left Lateral Tibial Plateau Fracture Narrative: Emely is a 53-year-old female. She has a history of anxiety, bipolar disorder, COPD, cervical cancer, fibromyalgia, and migraine headaches. She was walking a dog when the dog pulled the leash. She tripped over a root and lost her balance. She fell and landed on her left leg. She had immediate left knee and leg pain. She is unable to stand or ambulate. She initially presented to [facility]. She was subsequently transferred to [facility] for definitive treatment of her complex left tibial plateau fracture. She is currently awake alert on the seventh floor. Her only complaint is her left knee. Pain is worse with movement and is improved with rest. Review of Systems Patient denies fevers, chills, weight loss, headache, visual changes, hearing loss, chest pain, palpitations, shortness of breath, nausea, vomiting, no urinary changes, diarrhea, bowel changes, neck pain, back pain, skin rashes, weakness of extremities, easy bleeding, enlarged lymph nodes, numbness of extremities, anxiety, or depression. She complains of left knee pain and swelling Patient's social history, past medical history, and family history were reviewed on chart and with patient. [facility] - History History Provided By: Patient - Medical History Medical History: Medical History (Last Reviewed 11/22/18 @ 08:40 by Juan Luis Johnson MD) Anxiety Benign colon polyp Bipolar 1 disorder COPD (chronic obstructive pulmonary disease) Cervical cancer Chronic neck and back pain Fibromyalgia Migraine PTSD (post-traumatic stress disorder) - Surgical History Surgical History: Surgical History (Last Reviewed 11/22/18 @ 08:40 by Juan Luis Johnson MD) History of exploratory laparotomy History of hysterectomy - Family History Family History: Family History (Last Reviewed 11/22/18 @ 08:40 by Juan Luis Johnson MD) Daughter Bipolar disorder Mother COPD (chronic obstructive pulmonary disease) Dementia - Social History I have reviewed the patient's Social History: Yes - Tobacco History Second Hand Smoke Exposure: No Tobacco Use In Past 30 Days: No Smoking Status: Former smoker Tobacco Type: E-Cigarettes years: 25 Smoking End Date: the patient reports that she quit smoking last year and now vapes. - Alcohol History How Often Do You Have a Drink Containing Alcohol: 2 to 3 times a week - Substance Use History Substance History: No History of Abuse - Travel History Recent Travel in the [facility] Within the Last 8 Weeks: No - Immunization History Tetanus Immunization: >5 Years Hx Influenza Vaccine This Season: Yes Medications and Allergies Active Medications: Active Medications Acetaminophen (Tylenol) 650 mg PO Q4H PRN PRN Reason: Temp > 100.4 Al Hydroxide/Mg Hydroxide (Milk Of Broderick Lilexie) 30 ml PO Q12H PRN PRN Reason: Mild Constipation Albuterol (Duoneb Neb (Prn)) 1 ampul NEB Q2HR NEB PRN PRN Reason: SHORTNESS OF BREATH/WHEEZING Alprazolam (Xanax) 0.5 mg PO BID PRN PRN Reason: Anxiety Bisacodyl (Dulcolax Supp) 10 mg RECTAL DAILY PRN PRN Reason: SEVERE CONSITIPATION Bupropion HCl (Wellbutrin Sr) 150 mg PO BID [facility] Last Admin: 11/22/18 00:57 Dose: 150 mg Cyclobenzaprine HCl (Flexeril) 10 mg PO TID PRN PRN Reason: Muscle Spasm Fenofibrate (Tricor) 145 mg PO DAILY [facility] Gabapentin (Neurontin) 300 mg PO TID [facility] Sodium Chloride (Ns Inj) 1,000 mls @ 100 mls/hr IV.CONT .Q10H [facility] Last Admin: 11/22/18 06:13 Dose: 100 mls/hr Ketorolac Tromethamine (Toradol Inj) 15 mg IV.PUSH Q6H [facility] Stop: 11/23/18 12:46 Last Admin: 11/22/18 07:38 Dose: 15 mg Mirtazapine (Remeron) 45 mg PO HS [facility] Montelukast Sodium (Singulair) 10 mg PO QPM [facility] Morphine Sulfate (Morphine Inj) 4 mg IV.PUSH Q3H PRN PRN Reason: breakthrough pain Last Admin: 11/22/18 07:37 Dose: 4 mg Ondansetron HCl (Zofran Inj) 4 mg IV.PUSH Q6H PRN PRN Reason: NAUSEA OR VOMITING Oxycodone/Acetaminophen (Percocet 10/325 Mg) 1 tab PO Q4H PRN PRN Reason: PAIN SCALE 1-10 Last Admin: 11/22/18 06:12 Dose: 1 tab Quetiapine Fumarate (Seroquel) 25 mg PO BID@0900,1200 [facility] Quetiapine Fumarate (Seroquel) 50 mg PO [facility] Last Admin: 11/22/18 00:43 Dose: 50 mg Sennosides (Senokot) 17.2 mg PO Q12H PRN PRN Reason: Moderate Constipation Sodium Chloride (Ns Flush) 2 ml IV.FLUSH BID [facility] Sodium Chloride (Ns Flush) 2 ml IV.FLUSH PRN PRN PRN Reason: FLUSH AFTER USING IV ACCESS Topiramate (Topamax) 150 mg PO [facility] Last Admin: 11/22/18 00:57 Dose: 150 mg Verapamil HCl (Isoptin) 40 mg PO TID [facility] Last Admin: 11/22/18 00:57 Dose: 40 mg Allergies Allergy/AdvReac Type Severity Reaction Status Date / Time hydrocodone Allergy Intermediate ITCHING Unverified 11/21/18 22:41 promethazine Allergy Intermediate ITCHING Unverified 11/21/18 22:41 Home Medications Medication Instructions Recorded Confirmed Type alprazolam 0.5 mg PO BID PRN 11/21/18 11/21/18 History bupropion HCl 300 mg PO QAM 11/21/18 11/21/18 History cyclobenzaprine 10 mg PO TID PRN 11/21/18 11/21/18 History fenofibrate 145 mg PO DAILY 11/21/18 11/21/18 History gabapentin 300 mg PO TID 11/21/18 11/21/18 History mirtazapine 45 mg PO HS 11/21/18 11/22/18 History montelukast 10 mg PO QPM 11/21/18 11/21/18 History quetiapine [Seroquel] 25 mg PO BID 11/21/18 11/21/18 History quetiapine [Seroquel] 50 mg PO HS 11/21/18 11/21/18 History topiramate 150 mg PO HS 11/21/18 11/21/18 History verapamil 40 mg PO TID 11/21/18 11/21/18 History oxycodone-acetaminophen [Percocet] 1 tab PO Q4-6H PRN MDD 4 11/22/18 11/22/18 History Exam Vital signs: Vital Signs 11/21/18 22:10 11/21/18 22:50 11/22/18 00:00 Temperature 98.2 F 97.8 F Pulse Rate 100 H 93 H 97 H Respiratory Rate 20 18 18 Blood Pressure 187/89 H 160/110 H 145/99 H Pulse Oximetry 99 98 94 L 11/22/18 08:00 Temperature 98.0 F Pulse Rate 95 H Respiratory Rate 18 Blood Pressure 117/64 Pulse Oximetry 96 Intake & Output 11/21/18 11/22/18 11/22/18 18:59 06:59 18:59 Weight 70.9 kg Other: # Voids 2 Weight On Admission 70.3 kg Narrative: Emely is a 53-year-old female. General: Awake and alert. No acute distress. Appears well-developed well- nourished Head: Normocephalic, atraumatic pupils are equal Neck: Soft, nontender, trachea midline Abdomen: Soft, nondistended Examination of right arm reveals no pain or deformity with shoulder, elbow, or wrist motion. Skin is intact. Radial pulse is palpable. Normal capillary refill in fingers. Sensation is intact in radial, ulnar, and median nerve distributions. Senior Staff Accountant strength is +5. No lymphadenopathy noted. Examination of left arm reveals no pain or deformity with shoulder, elbow, or wrist motion. Skin is intact. Radial pulse is palpable. Normal capillary refill in fingers. Sensation is intact in radial, ulnar, and median nerve distributions. Senior Staff Accountant strength is +5. No lymphadenopathy noted. Examination of left lower extremity reveals no pain or deformity around her hip or ankle. She has moderate swelling around her knee, but compartments are soft. Skin is intact. She has severe pain with any knee motion. She has minimal pain with passive or active ankle or toe range of motion. Skin is intact. Sensation is intact in left foot. Dorsalis pedis pulse is palpable. Normal capillary refill and feet. Thigh and calf compartments are soft. No lymphadenopathy noted. Examination of right lower extremity reveals no pain or deformity with hip, knee , or ankle motion. Skin is intact. Sensation is intact in right foot. Dorsalis pedis pulse is palpable. Normal capillary refill and feet. Thigh and calf compartments are soft. No lymphadenopathy noted. +5 strength of ankle dorsiflexion and plantarflexion. Results - Labs Result Diagrams: 11/22/18 06:13 11/22/18 06:13 Labs: Laboratory Results - last 24 hr 11/22/18 11/22/18 06:13 06:13 WBC 8.8 RBC 3.93 L Hgb 12.6 Hct 37.4 MCV 95.3 MCH 32.2 MCHC 33.8 RDW 12.5 Plt Count 305 MPV 7.5 Neut % (Auto) 63.5 Lymph % (Auto) 23.3 Gregg % (Auto) 11.5 H Eos % (Auto) 1.1 Baso % (Auto) 0.6 Neut # (Auto) 5.6 Lymph # (Auto) 2.1 Gregg # (Auto) 1.0 H Eos # (Auto) 0.1 Baso # (Auto) 0.1 WBC Differential . Differential Comment Auto diff final Sodium 141 Potassium 3.7 Chloride 109 H Carbon Dioxide 23.2 Anion Gap 9 BUN 19 H Creatinine 0.98 Estimated GFR 59 L Random Glucose 95 Calcium 8.3 L Assessment and Plan - Assessment and Plan Emely had a fall last night resulting in displaced left tibial plateau fracture. X-rays and CT scan were reviewed from [facility]. X-rays reveal a depressed left lateral tibial plateau. Fracture does extend over to the medial plateau. She will need surgical treatment with open reduction internal fixation and possible allograft bone grafting. Currently she has too much swelling to proceed with surgery safely today. Her compartments are soft with no evidence of compartment syndrome. She will elevate her leg, use ice, and will be started on anti-inflammatories to help with swelling. We will reevaluate her leg daily to evaluate her swelling. The risk and benefits of surgery were discussed in depth with patient. The risk of surgery include bleeding, infection, injuries to arteries, nerves, or blood vessels, infection, knee arthritis, need for knee replacement, wound complications, nonunion, malunion, painful hardware, and need for further surgery. I also discussed medical complications including blood clots, pneumonia, stroke, heart attack, and . Informed consent was obtained and all questions were answered. N.p.o. after midnight, possible surgery tomorrow Calcium and vitamin D supplementation Physical therapy consult Follow-up with Dr. Johnson in 2 weeks SCDs, DAVID hose Ice and elevation of left leg IV Toradol ordered A mid-level provider in my office (nurse practitioner or physician butcher's assistant) may see this patient on follow-up visits and continue to implement the objectives of this plan including: Starting or adjusting medications, injections , cast application, orthotics, brace application, physical therapy, radiological studies (including x-ray, MRI, CT, ultrasound, bone scan), vascular studies, neurologic studies, specialist consultation, and proceeding with surgical management, as appropriate.
[2018-11-22] MEDS: Gabapentin 300 MG Capsule PO SCH ×3 (09:42→18:42)
[2018-11-22] MEDS: Fenofibrate 145 MG Tablet PO SCH (09:42)
[2018-11-22] MEDS: ALPRAZolam 0.5 MG Tablet PO PRN (10:56)
--- NOTE | 2018-11-22 14:07 | P.PNIM ---
Subjective Interval history: Follow-up for left lateral tibial plateau fracture. Patient is currently resting in bed. Ice pack on her left lower extremity. Denies any chest pain, shortness of breath, fever or chills. Orthopedic surgery evaluated patient and recommended possible surgery in the morning tomorrow 11/23/2018. Physical Exam Vital signs: Vital Signs 11/21/18 22:10 11/21/18 22:50 11/22/18 00:00 Temperature 98.2 F 97.8 F Pulse Rate 100 H 93 H 97 H Respiratory Rate 20 18 18 Blood Pressure 187/89 H 160/110 H 145/99 H Pulse Oximetry 99 98 94 L 11/22/18 08:00 11/22/18 12:00 Temperature 98.0 F 98.0 F Pulse Rate 95 H 96 H Respiratory Rate 18 18 Blood Pressure 117/64 109/66 Pulse Oximetry 96 95 Intake & Output 11/21/18 11/22/18 11/22/18 18:59 06:59 18:59 Weight 70.9 kg Other: # Voids 2 Weight On Admission 70.3 kg Narrative: GENERAL: Well-nourished, well-developed patient. SKIN: Warm and dry. HEAD: Normocephalic. EYES: No scleral icterus. No injection or drainage. NECK: Supple, trachea midline. No JVD or lymphadenopathy. CARDIOVASCULAR: Regular rate and rhythm without murmurs, gallops, or rubs. RESPIRATORY: Breath sounds equal bilaterally. No accessory muscle use. GASTROINTESTINAL: Abdomen soft, non-tender, nondistended. MUSCULOSKELETAL: No cyanosis. Left lower extremity immobilizer in place with ice pack. Able to move all toes. BACK: Nontender without obvious deformity. No CVA tenderness. Results Labs CBC & Chem 7: 11/22/18 06:13 11/22/18 06:13 Assessment and Plan Plan Ms. Harper is a 53 y/o female with a history of anxiety, PTSD, bipolar disorder, COPD, cervical and ovarian cancer s/p radiation and hysterectomy and bilateral oophorectomy, chronic neck and back pain, fibromyalgia, and migraine headaches who presented to the ER at [facility] and was found to have a A CT of the knee without contrast of the left side reveals an acute lateral tibial plateau fracture with significant articular surface depression measuring approximately 11 mm. Additionally acute mild fracture comminution and mild displacement in the intercondylar area of the proximal tibia to include mild displacement of the distal tibial bone attachment site of the ACL. Dr. Kwok, orthopedic surgeon, wanted the patient to see Dr. Collazo here given complicated nature of the fracture. The patient is admitted to the hospitalist service for medical management. Left lateral tibial plateau fracture with significant articular surface depression -Dr. Collazo consulted - probable surgery on 11/23/2018. -Continue acetaminophen, Percocet, morphine for pain management. -NPO midnight -consult to PT Bipolar disorder PTSD Anxiety -Resume home Seroquel, Wellbutrin, Remeron, and Xanax Migraines -Resume home Topamax Chronic pain Fibromyalgia Neuropathy -Resume home as needed Percocet, gabapentin, and as needed Flexeril COPD -Continue home Singulair and add as needed duo nebulizers Full code. SCDs. Pharmacological DVT prophylaxis after surgery. Progress Note: Quality VTE Deep Vein Thrombosis/Pulmonary Embolism Present on Admission: No
[2018-11-22] MEDS: Montelukast 10 MG Tablet PO SCH (18:42)
[2018-11-22] MEDS: Mirtazapine 15 MG Tablet PO SCH (20:30)
[2018-11-23] MEDS: oxyCODONE/Acetaminophen 10/325 Tablet PO PRN ×5 (00:41→19:48)
[2018-11-23] MEDS: Ketorolac Inj 30 MG/ML (IVP) Vial IV.PUSH SCH ×4 (00:41→12:23)
[2018-11-23] MEDS: Morphine Sulfate Inj 2 MG/ML Vial IV.PUSH PRN ×5 (01:37→20:50)
[2018-11-23] MEDS: Sod Chloride 0.9% Inj 1,000 ML IV.CONT SCH ×3 (01:38→15:37)
[2018-11-23] MEDS ORDERED: Aluminum/Magnesium/Simethacone Susp 30 ML UDC PO ONE (03:17)
--- NOTE | 2018-11-23 06:52 | P.PNOP ---
Subjective Interval history: Emely is awake and alert. Her pain is improving in her left knee. She is awake and alert. Physical Exam Vital signs: Vital Signs 11/22/18 08:00 11/22/18 12:00 11/22/18 16:00 Temperature 98.0 F 98.0 F 98.3 F Pulse Rate 95 H 96 H 97 H Respiratory Rate 18 18 18 Blood Pressure 117/64 109/66 146/73 H Pulse Oximetry 96 95 94 L 11/22/18 18:00 11/22/18 20:00 11/23/18 00:00 Temperature 97.4 F L 97.8 F 97.9 F Pulse Rate 101 H 108 H 109 H Respiratory Rate 17 20 20 Blood Pressure 162/91 H 121/72 145/65 H Pulse Oximetry 99 95 97 Intake & Output 11/22/18 11/22/18 11/23/18 06:59 18:59 06:59 Intake Total 2200 / 2200 1500 / 1500 Balance 2200 / 2200 1500 / 1500 Weight 70.9 kg 77.5 kg Intake: IV 1000 / 1000 1500 / 1500 NS Inj 1,000 ML @ 100 mls/hr IV 1000 / 1000 1500 / 1500 .CONT .Q10H SHELIA Rx#:[id number] Oral Supplement 1200 / 1200 Other: # Voids 2 4 2 Weight On Admission 70.3 kg Narrative: Patient is awake and alert. Resting comfortably. Examination of left knee reveals moderate swelling. Calf compartments are soft. Sensation intact left foot. Minimal pain with passive and active ankle and toe dorsiflexion and plantarflexion. Results - Labs CBC & Chem 7: 11/22/18 06:13 11/22/18 06:13 Laboratory Results - last 24 hr 11/22/18 06:13 Sodium 141 Potassium 3.7 Chloride 109 H Carbon Dioxide 23.2 Anion Gap 9 BUN 19 H Creatinine 0.98 Estimated GFR 59 L Random Glucose 95 Calcium 8.3 L Assessment and Plan - Assessment and Plan Emely has a depressed left tibial plateau fracture. She will need to continue ice and elevation. If her swelling improves, she may be a surgical candidate. I will reevaluate her swelling tomorrow. It is unlikely that she would be ready for surgery tomorrow given her swelling. N.p.o. after midnight, possible surgery tomorrow--patient will probably will not be ready for tomorrow secondary to swelling SCDs, DAVID hose Ice and elevation of left leg IV Toradol ordered A mid-level provider in my office (nurse practitioner or physician clinical data assistant) may see this patient on follow-up visits and continue to implement the objectives of this plan including: Starting or adjusting medications, injections , cast application, orthotics, brace application, physical therapy, radiological studies (including x-ray, MRI, CT, ultrasound, bone scan), vascular studies, neurologic studies, specialist consultation, and proceeding with surgical management, as appropriate.
[2018-11-23] MEDS ORDERED: Enoxaparin Inj 30 MG/0.3 ML Syringe SQ ONE (07:00)
[2018-11-23] MEDS: Gabapentin 300 MG Capsule PO SCH ×4 (08:23→17:00)
[2018-11-23] MEDS: buPROPion 150 MG 12 HR Tablet PO SCH ×2 (08:24→21:59)
[2018-11-23] MEDS: QUEtiapine 25 MG Tablet PO SCH ×3 (08:24→21:59)
[2018-11-23] MEDS: Fenofibrate 145 MG Tablet PO SCH (08:24)
[2018-11-23] MEDS: ALPRAZolam 0.5 MG Tablet PO PRN (10:08)
--- NOTE | 2018-11-23 14:59 | P.PNIM ---
Subjective Interval history: Follow-up for left lateral tibial plateau fracture. Patient is doing well. No fever, chills. She feels her left lower ext swelling is down. Possible surgery tomorrow AM. Physical Exam Vital signs: Vital Signs 11/22/18 16:00 11/22/18 18:00 11/22/18 20:00 Temperature 98.3 F 97.4 F L 97.8 F Pulse Rate 97 H 101 H 108 H Respiratory Rate 18 17 20 Blood Pressure 146/73 H 162/91 H 121/72 Pulse Oximetry 94 L 99 95 11/23/18 00:00 11/23/18 08:00 11/23/18 12:00 Temperature 97.9 F 97.2 F L 98.0 F Pulse Rate 109 H 102 H 95 H Respiratory Rate 20 18 18 Blood Pressure 145/65 H 104/57 L 105/55 L Pulse Oximetry 97 94 L 92 L Intake & Output 11/22/18 11/23/18 11/23/18 18:59 06:59 18:59 Intake Total 2200 / 2200 1500 / 1500 1000 / 1000 Balance 2200 / 2200 1500 / 1500 1000 / 1000 Weight 77.5 kg Intake: IV 1000 / 1000 1500 / 1500 1000 / 1000 NS Inj 1,000 ML @ 100 mls/hr IV 1000 / 1000 1500 / 1500 1000 / 1000 .CONT .Q10H SHELIA Rx#:[id number] Oral Supplement 1200 / 1200 Other: # Voids 4 2 Narrative: GENERAL: Well-nourished, well-developed patient. SKIN: Warm and dry. HEAD: Normocephalic. EYES: No scleral icterus. No injection or drainage. NECK: Supple, trachea midline. No JVD or lymphadenopathy. CARDIOVASCULAR: Regular rate and rhythm without murmurs, gallops, or rubs. RESPIRATORY: Breath sounds equal bilaterally. No accessory muscle use. GASTROINTESTINAL: Abdomen soft, non-tender, nondistended. MUSCULOSKELETAL: No cyanosis. Left lower extremity immobilizer in place with ice pack. Able to move all toes. BACK: Nontender without obvious deformity. No CVA tenderness. Results Labs CBC & Chem 7: 11/22/18 06:13 11/22/18 06:13 Assessment and Plan Plan Ms. Harper is a 53 y/o female with a history of anxiety, PTSD, bipolar disorder, COPD, cervical and ovarian cancer s/p radiation and hysterectomy and bilateral oophorectomy, chronic neck and back pain, fibromyalgia, and migraine headaches who presented to the ER at [facility] and was found to have a A CT of the knee without contrast of the left side reveals an acute lateral tibial plateau fracture with significant articular surface depression measuring approximately 11 mm. Additionally acute mild fracture comminution and mild displacement in the intercondylar area of the proximal tibia to include mild displacement of the distal tibial bone attachment site of the ACL. Dr. Kwok, orthopedic surgeon, wanted the patient to see Dr. Collazo here given complicated nature of the fracture. The patient is admitted to the hospitalist service for medical management. Left lateral tibial plateau fracture with significant articular surface depression -Dr. Collazo consulted - probable surgery on 11/23/2018. -Continue acetaminophen, Percocet, morphine for pain management. -NPO midnight. Surgery tomorrow AM if swelling is improved. -consult to PT Bipolar disorder PTSD Anxiety -Resume home Seroquel, Wellbutrin, Remeron, and Xanax Migraines -Resume home Topamax Chronic pain Fibromyalgia Neuropathy -Resume home as needed Percocet, gabapentin, and as needed Flexeril COPD -Continue home Singulair and add as needed duo nebs. Full code. SCDs. Follow-up for left lateral tibial plateau fracture. Progress Note: Quality VTE Deep Vein Thrombosis/Pulmonary Embolism Present on Admission: No
[2018-11-23] MEDS: Montelukast 10 MG Tablet PO SCH (17:00)
--- NOTE | 2018-11-23 21:17 | ECG ---
Date Performed: 11/22/2018 Time Performed: 20:48:14 PTAGE: 53 years EKG: Sinus rhythm LOW QRS VOLTAGE IN PRECORDIAL LEADS BORDERLINE ECG PREVIOUS TRACING : 06/24/2016 22.29 DOCTOR: Agustin Arora Interpretating Date/Time 11/23/2018 21:15:48
[2018-11-23] MEDS: Topiramate 100 MG Tablet PO SCH (21:57)
[2018-11-23] MEDS: Mirtazapine 15 MG Tablet PO SCH (21:59)
[2018-11-24] MEDS: Aluminum/Magnesium/Simethacone Susp 30 ML UDC PO PRN ×2 (00:18→06:52)
[2018-11-24] MEDS: oxyCODONE/Acetaminophen 10/325 Tablet PO PRN ×6 (00:19→23:51)
[2018-11-24] MEDS: Morphine Sulfate Inj 2 MG/ML Vial IV.PUSH PRN ×6 (01:01→20:18)
[2018-11-24] MEDS: Sod Chloride 0.9% Inj 1,000 ML IV.CONT SCH ×2 (01:03→06:54)
[2018-11-24] MEDS: ALPRAZolam 0.5 MG Tablet PO PRN (04:04)
[2018-11-24] MEDS ORDERED: Enoxaparin Inj 30 MG/0.3 ML Syringe SQ ONE (07:11)
--- NOTE | 2018-11-24 07:35 | P.PNOP ---
Subjective Interval history: s/p left tibia plateau fracture -Patient doing well. Pain controlled with medication. No changes. Physical Exam Vital signs: Vital Signs 11/23/18 08:00 11/23/18 12:00 11/23/18 16:00 Temperature 97.2 F L 98.0 F 98.1 F Pulse Rate 102 H 95 H 98 H Respiratory Rate 18 18 18 Blood Pressure 104/57 L 105/55 L 126/58 L Pulse Oximetry 94 L 92 L 98 11/23/18 20:00 11/24/18 00:00 Temperature 99.5 F 98.8 F Pulse Rate 113 H 110 H Respiratory Rate 22 20 Blood Pressure 136/78 138/69 Pulse Oximetry 97 98 Intake & Output 11/23/18 11/24/18 11/24/18 18:59 06:59 18:59 Intake Total 1740 / 1740 2960 / 2960 Balance 1740 / 1740 2960 / 2960 Weight 79.5 kg Intake: IV 1000 / 1000 1999 / 1999 NS Inj 1,000 ML @ 100 mls/hr IV 1000 / 1000 1999 .CONT .Q10H SHELIA Rx#:[id number] Oral 740 / 740 960 / 960 Other: # Voids 4 5 # Bowel Movements 0 Narrative: LLE: 2+ swelling of lower leg. compartments soft. nvi distally. +CKS. strong dorsiflexoin Results - Labs CBC & Chem 7: 11/22/18 06:13 11/22/18 06:13 Assessment and Plan - Assessment and Plan 1) Left Tibial Plateau Fracture -Swelling too great for surgery at this time. -Continue to remain strictly nonweightbearing and elevate the leg at all times -Toradol 15 mg every 8 hours for 3 doses -We will resume diet today -N.p.o. after midnight -We will reevaluate tomorrow morning for potential surgery with Dr. Collazo
[2018-11-24] MEDS: QUEtiapine 25 MG Tablet PO SCH ×3 (09:32→20:17)
[2018-11-24] MEDS: Gabapentin 300 MG Capsule PO SCH ×3 (09:32→17:54)
[2018-11-24] MEDS: Fenofibrate 145 MG Tablet PO SCH (09:32)
[2018-11-24] MEDS: Ketorolac Inj 30 MG/ML (IVP) Vial IV.PUSH PRN ×2 (09:33→23:51)
[2018-11-24] MEDS: buPROPion 150 MG 12 HR Tablet PO SCH ×2 (09:33→20:17)
[2018-11-24] MEDS: Montelukast 10 MG Tablet PO SCH (17:54)
[2018-11-24] MEDS: Mirtazapine 15 MG Tablet PO SCH (20:17)
[2018-11-24] MEDS: Topiramate 100 MG Tablet PO SCH (20:17)
--- NOTE | 2018-11-24 22:07 | P.PNIM ---
Subjective Interval history: Follow-up for left lateral tibial plateau fracture. Patient is doing well. Her left lower ext swelling is still significant amount and thus anticipated surgery was cancelled. Otherwise, patient remains stable, no fever, chills. Physical Exam Vital signs: Vital Signs 11/24/18 00:00 11/24/18 08:00 11/24/18 11:33 Temperature 98.8 F 98.0 F Pulse Rate 110 H 102 H Respiratory Rate 20 18 14 Blood Pressure 138/69 111/68 Pulse Oximetry 98 96 11/24/18 12:00 11/24/18 16:00 11/24/18 17:25 Temperature 98.1 F 98.1 F Pulse Rate 102 H 104 H 104 H Respiratory Rate 18 20 20 Blood Pressure 132/61 143/65 H Pulse Oximetry 96 100 11/24/18 20:00 Temperature 98.2 F Pulse Rate 106 H Respiratory Rate 18 Blood Pressure 113/68 Pulse Oximetry 98 Intake & Output 11/24/18 11/24/18 11/25/18 06:59 18:59 06:59 Intake Total 2960 / 2960 2500 / 2500 Balance 2960 / 2960 2500 / 2500 Weight 79.5 kg Intake: IV 1999 500 / 500 NS Inj 1,000 ML @ 100 mls/hr IV 1999 500 / 500 .CONT .Q10H SHELIA Rx#:[id number] Oral 960 / 960 Oral Supplement 1999 Other: # Voids 5 5 Narrative: GENERAL: Well-nourished, well-developed patient. SKIN: Warm and dry. HEAD: Normocephalic. EYES: No scleral icterus. No injection or drainage. NECK: Supple, trachea midline. No JVD or lymphadenopathy. CARDIOVASCULAR: Regular rate and rhythm without murmurs, gallops, or rubs. RESPIRATORY: Breath sounds equal bilaterally. No accessory muscle use. GASTROINTESTINAL: Abdomen soft, non-tender, nondistended. MUSCULOSKELETAL: No cyanosis. Left lower extremity immobilizer in place with ice pack. Able to move all toes. BACK: Nontender without obvious deformity. No CVA tenderness. Results Labs CBC & Chem 7: 11/22/18 06:13 11/22/18 06:13 Assessment and Plan Plan Ms. Harper is a 53 y/o female with a history of anxiety, PTSD, bipolar disorder, COPD, cervical and ovarian cancer s/p radiation and hysterectomy and bilateral oophorectomy, chronic neck and back pain, fibromyalgia, and migraine headaches who presented to the ER at [facility] and was found to have a A CT of the knee without contrast of the left side reveals an acute lateral tibial plateau fracture with significant articular surface depression measuring approximately 11 mm. Additionally acute mild fracture comminution and mild displacement in the intercondylar area of the proximal tibia to include mild displacement of the distal tibial bone attachment site of the ACL. Dr. Kwok, orthopedic surgeon, wanted the patient to see Dr. Collazo here given complicated nature of the fracture. The patient is admitted to the hospitalist service for medical management. Left lateral tibial plateau fracture with significant articular surface depression -Dr. Collazo consulted. -Continue acetaminophen, Percocet, morphine for pain management. -NPO midnight. Surgery tomorrow 11/25/2018 AM if swelling improves. Bipolar disorder PTSD Anxiety -Resume home Seroquel, Wellbutrin, Remeron, and Xanax Migraines -Resume home Topamax Chronic pain Fibromyalgia Neuropathy -Resume home as needed Percocet, gabapentin, and as needed Flexeril COPD -Continue home Singulair and add as needed duo nebs. Full code. SCDs. Lovenox when okay with orthopedic surgery for DVT Prophylaxis. Progress Note: Quality VTE Deep Vein Thrombosis/Pulmonary Embolism Present on Admission: No
[2018-11-25] MEDS: Morphine Sulfate Inj 2 MG/ML Vial IV.PUSH PRN ×2 (00:53→07:15)
[2018-11-25] MEDS: oxyCODONE/Acetaminophen 10/325 Tablet PO PRN ×3 (04:07→19:28)
--- NOTE | 2018-11-25 06:54 | P.PNOP ---
Subjective Interval history: Emely is awake and alert. Pain is controlled. She has been elevating and icing her knee. Physical Exam Vital signs: Vital Signs 11/24/18 08:00 11/24/18 11:33 11/24/18 12:00 Temperature 98.0 F 98.1 F Pulse Rate 102 H 102 H Respiratory Rate 18 14 18 Blood Pressure 111/68 132/61 Pulse Oximetry 96 96 11/24/18 16:00 11/24/18 17:25 11/24/18 20:00 Temperature 98.1 F 98.2 F Pulse Rate 104 H 104 H 106 H Respiratory Rate 20 20 18 Blood Pressure 143/65 H 113/68 Pulse Oximetry 100 98 11/25/18 00:00 11/25/18 01:41 Temperature 97.1 F L Pulse Rate 107 H 101 H Respiratory Rate 18 19 Blood Pressure 147/65 H Pulse Oximetry 98 Intake & Output 11/24/18 11/24/18 11/25/18 06:59 18:59 06:59 Intake Total 2960 / 2960 2500 / 2500 Balance 2960 / 2960 2500 / 2500 Weight 79.5 kg 71.5 kg Intake: IV 1999 500 / 500 NS Inj 1,000 ML @ 100 mls/hr IV 1999 500 / 500 .CONT .Q10H SHELIA Rx#:[id number] Oral 960 / 960 Oral Supplement 1999 Other: # Voids 5 5 4 Narrative: Emely is awake and alert. Examination of left knee reveals decreased swelling. Calf and thigh compartments are soft. Skin and soft tissue appear ready to proceed with surgery. Results - Labs CBC & Chem 7: 11/22/18 06:13 11/22/18 06:13 Assessment and Plan - Assessment and Plan 1) Left Tibial Plateau Fracture -Continue to remain strictly nonweightbearing and elevate the leg at all times -N.p.o. -Consent signed on chart -Surgery today -Chloe, DAVID solitario, Mirella. Faizan upon discharge home -Discharge home Wednesday or Wednesday. -Physical therapy, nonweightbearing left leg, no leg lifts, passive range of motion 0-90 degrees -[place] & Xarelto Rx -Follow-up with Dr. Collazo in 2 weeks
[2018-11-25] MEDS ORDERED: Famotidine PF Inj 20 MG/2 ML Vial ONE (09:07)
[2018-11-25] MEDS ORDERED: Ketamine Inj 50 MG/5 ML Syringe IV.PUSH ONE (09:22)
[2018-11-25] MEDS ORDERED: fentaNYL Citrate Inj 100 MCG/2 ML Ampul ONE ×2 (09:22)
[2018-11-25] MEDS ORDERED: Labetalol HCl Inj 100 MG/20 ML Vial IV.CONT ONE (09:23)
[2018-11-25] MEDS ORDERED: Lidocaine PF 1% Inj 5 ML Syringe OTHER ONE (09:23)
[2018-11-25] MEDS ORDERED: Sodium Chlor 0.9% Inj 500 ML IV.CONT ONE (09:30)
[2018-11-25] MEDS ORDERED: Chlorhexidine Gluconate 2% 1 Pack (2 Cloths) TOPICAL ONE ×2 (09:30→15:00)
[2018-11-25] MEDS ORDERED: Metoprolol Tartrate 25 MG Tablet PO ONE ×2 (09:30→13:04)
[2018-11-25] MEDS ORDERED: Post-op Orders (for Pharmacy) OTHER STA (10:34)
--- NOTE | 2018-11-25 10:39 | P.OP ---
- Preoperative Diagnosis (1) Closed bicondylar fracture of left tibial plateau Date of procedure: 11/25/18 Procedure: Open reduction internal fixation left tibial plateau fracture Anesthesia: GETA Surgeon: Juan Luis Johnson MD Bulb Packer: Nahum Trinidad PA-C The surgical procedure was assisted by my physician early childhood assistant. My P.A. presence was necessary throughout this case for the manipulation and positioning of the surgical extremity. My P.A. was assisting me throughout the duration of this procedure. The skill set of a physician early childhood assistant was medically necessary to complete this procedure. During the surgical case the surgical physician assistant was working at the back table and the physician early childhood assistant was directly assisting me. Operation and Findings: Implants used: Biomet Plan of activity: Nonweightbearing, no quad sets This patient was seen and evaluated preoperatively. Patient sustained an injury resulting a left tibial plateau fracture. X-rays and CT scan were reviewed from [facility]. CT scan revealed a depressed lateral tibial plateau fracture with fracture extension over to the medial tibial plateau. Informed consent was obtained preoperatively after detailed discussion of the risks and benefits of surgery. Risk of surgery including bleeding, infection, nonunion, painful hardware, stiffness, loss of motion, arthritis, need for knee replacement, as well as medical complications including blood clots, stroke, heart attack, and were discussed. I also discussed the possibility of using allograft bone graft . Preoperatively the operative site was marked. Patient was brought to the operating room and placed on the operating room table. Intravenous sedation and general endotracheal anesthesia were administered. IV antibiotics were given and a time out procedure was preformed. The operative leg was prepped with alcohol followed by Hibiclens and draped in the usual sterile fashion. Procedure began with a 4-inch curvilinear incision over the anterolateral knee. Subcutaneous tissue was treated with Bovie. Iliotibial band was split in line with fibers. A sub-meniscal arthrotomy was created and the lateral articular surface was visualized. There was significant comminution and depression of the articular surface. A window was made in the metaphyseal region and bone tamps used to elevate the articular surface. Articular surface reduced into excellent alignment. K-wires were used for provisional fixation. At this point cancellous bone graft was packed under the articular surface using a bone tamp. The cortical fragments were now reduced. Fluoroscopy revealed excellent alignment of fracture. A proximal tibial plate was selected. The plate was provisionally held with K-wires. 3.5 cortical screws were used compress plate to bone distally, and a periarticular clamp was used to compress the medial and lateral tibial plateau fracture fragments together. The fracture line extending into the medial tibial plateau reduced into excellent alignment. Multiple locking screws were now placed proximally. Additional screws were placed in the shaft. K-wires were removed. Final fluoroscopy showed excellent alignment of fracture with well-placed hardware. The incision was thoroughly irrigated. Arthrotomy and iliotibial band closed with #1 Vicryl, . Subcutaneous tissues closed with 3-0 Vicryl and skin was closed with jareth. Sterile dressings were applied. The patient was transferred to recovery in stable condition.
[2018-11-25] MEDS ORDERED: Naloxone Inj 0.4 MG/ML Vial ONE (10:45)
--- NOTE | 2018-11-25 10:53 | XR ---
EXAM DATE: 11/25/2018 10:50 AM EST AGE/SEX: 53 years / Female INDICATIONS: Post-op ORIF left tibial plateau. CLINICAL DATA: This is the patient's subsequent encounter. Patient reports that signs and symptoms h ave been present for 1 day and indicates a pain score of Nonresponsive. MEDICAL/SURGICAL HISTORY: Non-responsive. Non-responsive. COMPARISON: No prior exams available for comparison. FINDINGS: Lateral cortical side plate and screw fixation of the proximal tibia with hardware intact. Good reduc tion of fracture fragments in anatomic alignment noted. CONCLUSION: Satisfactory operative appearance Electronically signed by: Rufus Burr MD Board Certified Radiologist 11/25/2018 10:52 AM EST
[2018-11-25] MEDS ORDERED: *morphine SULFATE 4 MG/ML PERIprocedure ONLY ONE ×2 (11:12→11:31)
[2018-11-25] MEDS: buPROPion 150 MG 12 HR Tablet PO SCH ×2 (14:10→20:11)
[2018-11-25] MEDS: Gabapentin 300 MG Capsule PO SCH ×3 (14:10→19:20)
[2018-11-25] MEDS: Fenofibrate 145 MG Tablet PO SCH (14:10)
[2018-11-25] MEDS: QUEtiapine 25 MG Tablet PO SCH ×3 (14:10→20:11)
[2018-11-25] MEDS: Calcium/Vitamin D 250/125 MG Tablet PO SCH ×2 (14:12→19:20)
[2018-11-25] MEDS: Ketorolac Inj 30 MG/ML (IVP) Vial IV.PUSH SCH ×2 (14:13→20:09)
[2018-11-25] MEDS ORDERED: Sodium Chlor 0.9% Inj 500 ML IV.SIG SCH (15:00)
--- NOTE | 2018-11-25 16:09 | P.PNIM ---
Subjective Interval history: Follow-up for left lateral tibial plateau fracture. Patient underwent ORIF of left tibial plateau fracture. Currently doing well. Resting in bed. Complains of persistent pain in her left lower extremity. No fever or chills. Physical Exam Vital signs: Vital Signs 11/24/18 17:25 11/24/18 20:00 11/25/18 00:00 Temperature 98.2 F 97.1 F L Pulse Rate 104 H 106 H 107 H Respiratory Rate 20 18 18 Blood Pressure 113/68 147/65 H Pulse Oximetry 98 98 11/25/18 01:41 11/25/18 07:56 11/25/18 10:55 Temperature 99.3 F 98.7 F Pulse Rate 101 H 109 H 116 H Respiratory Rate 19 14 20 Blood Pressure 134/61 195/98 H Pulse Oximetry 98 100 11/25/18 11:10 11/25/18 11:24 11/25/18 11:40 Temperature 99.0 F Pulse Rate 92 H 95 H 98 H Respiratory Rate 18 18 20 Blood Pressure 175/83 H 164/78 H 160/78 H Pulse Oximetry 100 93 L 94 L 11/25/18 11:55 11/25/18 15:00 Temperature 98.3 F Pulse Rate 100 H 116 H Respiratory Rate 18 20 Blood Pressure 146/72 H 167/79 H Pulse Oximetry 94 L 96 Intake & Output 11/24/18 11/25/18 11/25/18 18:59 06:59 18:59 Intake Total 2500 / 2500 1000 / 1000 Output Total 500 / 500 Balance 2500 / 2500 500 / 500 Weight 71.5 kg 66.8 kg Intake: IV 500 / 500 1000 / 1000 LR 1000 mL Inj 1,000 ML @ 80 1000 / 1000 mls/hr IV.CONT .[id number] SHELIA Rx# :[id number] NS Inj 1,000 ML @ 100 mls/hr IV 500 / 500 .CONT .Q10H SHELIA Rx#:[id number] Oral Supplement 1999 Output: Urine 500 / 500 Other: # Voids 5 4 Narrative: GENERAL: Well-nourished, well-developed patient. SKIN: Warm and dry. HEAD: Normocephalic. EYES: No scleral icterus. No injection or drainage. NECK: Supple, trachea midline. No JVD or lymphadenopathy. CARDIOVASCULAR: Regular rate and rhythm without murmurs, gallops, or rubs. RESPIRATORY: Breath sounds equal bilaterally. No accessory muscle use. GASTROINTESTINAL: Abdomen soft, non-tender, nondistended. MUSCULOSKELETAL: No cyanosis. Left lower extremity immobilizer in place. Moves all toes. BACK: Nontender without obvious deformity. No CVA tenderness. Results Labs CBC & Chem 7: 11/22/18 06:13 11/22/18 06:13 Imaging Imaging: Impressions Knee X-Ray 11/25/18 00:00 CONCLUSION: Satisfactory operative appearance Assessment and Plan Plan Ms. Harper is a 53 y/o female with a history of anxiety, PTSD, bipolar disorder, COPD, cervical and ovarian cancer s/p radiation and hysterectomy and bilateral oophorectomy, chronic neck and back pain, fibromyalgia, and migraine headaches who presented to the ER at [facility] and was found to have a A CT of the knee without contrast of the left side reveals an acute lateral tibial plateau fracture with significant articular surface depression measuring approximately 11 mm. Additionally acute mild fracture comminution and mild displacement in the intercondylar area of the proximal tibia to include mild displacement of the distal tibial bone attachment site of the ACL. Dr. Kwok, orthopedic surgeon, wanted the patient to see Dr. Collazo here given complicated nature of the fracture. The patient is admitted to the hospitalist service for medical management. Left lateral tibial plateau fracture with significant articular surface depression -Dr. Collazo consulted. Status post ORIF on 11/25/2018. -Continue acetaminophen, Percocet, morphine for pain management. Bipolar disorder PTSD Anxiety -Resume home Seroquel, Wellbutrin, Remeron, and Xanax Migraines -Resume home Topamax Chronic pain Fibromyalgia Neuropathy -Resume home as needed Percocet, gabapentin, and as needed Flexeril COPD -Continue home Singulair and add as needed duo nebs. Full code. SCDs. Lovenox 30 mg every 24 hours to start on 11/26/2018. Progress Note: Quality VTE Deep Vein Thrombosis/Pulmonary Embolism Present on Admission: No
[2018-11-25] MEDS: ceFAZolin 2 GM Premix Inj 2 GM/50 ML PIGGYBACK IV.SIG SCH (19:21)
[2018-11-25] MEDS: Montelukast 10 MG Tablet PO SCH (19:24)
[2018-11-25] MEDS: Morphine Inj 4 MG/ML Vial IV.PUSH PRN (20:10)
[2018-11-25] MEDS: Mirtazapine 15 MG Tablet PO SCH (20:11)
[2018-11-25] MEDS: Topiramate 100 MG Tablet PO SCH (20:11)
[2018-11-25] MEDS: Vancomycin Inj 1,000 MG in Sodium Chlor 0.9% Inj 250 ML IV.SIG SCH (22:53)
[2018-11-26] MEDS: Morphine Inj 4 MG/ML Vial IV.PUSH PRN ×5 (01:19→21:40)
[2018-11-26] MEDS: ceFAZolin 2 GM Premix Inj 2 GM/50 ML PIGGYBACK IV.SIG SCH ×3 (01:20→17:19)
[2018-11-26] MEDS: oxyCODONE/Acetaminophen 10/325 Tablet PO PRN (05:59)
[2018-11-26] MEDS: ALPRAZolam 0.5 MG Tablet PO PRN ×2 (05:59→20:25)
[2018-11-26] MEDS: Ketorolac Inj 30 MG/ML (IVP) Vial IV.PUSH SCH (06:00)
[2018-11-26 06:09] LABS: Hematocrit 30.2 % (35.0-46.0); Hemoglobin 10.3 gm/dL (11.6-15.3)
--- NOTE | 2018-11-26 07:53 | P.PNOP ---
Subjective Interval history: pain and headaches. Physical Exam Vital signs: Vital Signs 11/25/18 07:56 11/25/18 10:55 11/25/18 11:10 Temperature 99.3 F 98.7 F Pulse Rate 109 H 116 H 92 H Respiratory Rate 14 20 18 Blood Pressure 134/61 195/98 H 175/83 H Pulse Oximetry 98 100 100 11/25/18 11:24 11/25/18 11:40 11/25/18 11:55 Temperature 99.0 F Pulse Rate 95 H 98 H 100 H Respiratory Rate 18 20 18 Blood Pressure 164/78 H 160/78 H 146/72 H Pulse Oximetry 93 L 94 L 94 L 11/25/18 15:00 11/25/18 16:11 11/25/18 21:07 Temperature 98.3 F 97.9 F 98.3 F Pulse Rate 116 H 101 H 102 H Respiratory Rate 20 17 20 Blood Pressure 167/79 H 129/58 L 133/71 Pulse Oximetry 96 98 98 11/26/18 01:34 11/26/18 04:08 Temperature 97.7 F 97.4 F L Pulse Rate 99 H 94 H Respiratory Rate 20 18 Blood Pressure 130/63 134/68 Pulse Oximetry 96 100 Intake & Output 11/25/18 11/26/18 11/26/18 18:59 06:59 18:59 Intake Total 1700 / 1700 1140 / 1140 Output Total 550 / 550 1200 / 1200 Balance 1150 / 1150 -60 / -60 Weight 66.8 kg 68.2 kg Intake: IV 1000 / 1000 100 / 100 LR 1000 mL Inj 1,000 ML @ 80 1000 / 1000 mls/hr IV.CONT .[id number] SHELIA Rx# :[id number] Ancef 2 GM Premix Inj 2 gm In 100 / 100 50 ml @ 100 mls/hr IV.SIG Q8H SHELIA Rx#:[id number] Oral 1040 / 1040 Anesthesia Amount 700 / 700 Output: Urine 500 / 500 1200 / 1200 Estimated Blood Loss 50 / 50 Other: # Voids 4 Date of Last Bowel Movement 11/22/18 # Bowel Movements 0 Narrative: in bed, nad, had to wake patient dressing c/d/i neg homans nvi Results - Labs CBC & Chem 7: 11/26/18 04:18 11/22/18 06:13 Laboratory Results - last 24 hr 11/26/18 04:18 Hgb 10.3 L Hct 30.2 L - Imaging Impressions Knee X-Ray 11/25/18 00:00 CONCLUSION: Satisfactory operative appearance Assessment and Plan - Ortho Post Op Day # 1 - Assessment and Plan 1) Left Tibial Plateau Fracture s/p orif left tibia plateau fx pod #1 -Continue to remain strictly nonweightbearing and elevate the leg at all times -Discharge home Wednesday or Wednesday. -Physical therapy, nonweightbearing left leg, no leg lifts, passive range of motion 0-90 degrees -Xarelto Rx -Follow-up with Dr. Collazo in 2 weeks
[2018-11-26] MEDS: buPROPion 150 MG 12 HR Tablet PO SCH ×2 (09:10→20:25)
[2018-11-26] MEDS: Calcium/Vitamin D 250/125 MG Tablet PO SCH ×3 (09:10→17:19)
[2018-11-26] MEDS: Fenofibrate 145 MG Tablet PO SCH (09:10)
[2018-11-26] MEDS: QUEtiapine 25 MG Tablet PO SCH ×3 (09:10→20:26)
[2018-11-26] MEDS: Gabapentin 300 MG Capsule PO SCH ×3 (09:10→17:19)
[2018-11-26] MEDS: Enoxaparin Inj 30 MG/0.3 ML Syringe SQ SCH (09:11)
[2018-11-26] MEDS: Vancomycin Inj 1,000 MG in Sodium Chlor 0.9% Inj 250 ML IV.SIG SCH (09:12)
--- NOTE | 2018-11-26 11:43 | P.PNIM ---
Subjective Interval history: Patient complains that her breakthrough meds was difficult to access overnight. I have adjusted her pain meds to provide better access, she has a history of chronic pain and is used to taking Percocet 4-6 times a day at home. Physical Exam Vital signs: Vital Signs 11/25/18 11:40 11/25/18 11:55 11/25/18 15:00 Temperature 99.0 F 98.3 F Pulse Rate 98 H 100 H 116 H Respiratory Rate 20 18 20 Blood Pressure 160/78 H 146/72 H 167/79 H Pulse Oximetry 94 L 94 L 96 11/25/18 16:11 11/25/18 21:07 11/26/18 01:34 Temperature 97.9 F 98.3 F 97.7 F Pulse Rate 101 H 102 H 99 H Respiratory Rate 17 20 20 Blood Pressure 129/58 L 133/71 130/63 Pulse Oximetry 98 98 96 11/26/18 04:08 11/26/18 09:10 11/26/18 09:11 Temperature 97.4 F L Pulse Rate 94 H Respiratory Rate 18 18 18 Blood Pressure 134/68 Pulse Oximetry 100 11/26/18 09:40 Temperature Pulse Rate Respiratory Rate 18 Blood Pressure Pulse Oximetry Intake & Output 11/25/18 11/26/18 11/26/18 18:59 06:59 18:59 Intake Total 1700 / 1700 1140 / 1140 300 / 300 Output Total 550 / 550 1200 / 1200 Balance 1150 / 1150 -60 / -60 300 / 300 Weight 66.8 kg 68.2 kg Intake: IV 1000 / 1000 100 / 100 300 / 300 LR 1000 mL Inj 1,000 ML @ 80 1000 / 1000 mls/hr IV.CONT .[id number] [facility] Rx# :[id number] Vancomycin Inj 1,000 MG In NS 250 / 250 Inj 250 ML @ 250 mls/hr IV.SIG Q12H [facility] Rx#:[id number] Ancef 2 GM Premix Inj 2 gm In 100 / 100 50 / 50 50 ml @ 100 mls/hr IV.SIG Q8H [facility] Rx#:[id number] Oral 1040 / 1040 Anesthesia Amount 700 / 700 Output: Urine 500 / 500 1200 / 1200 Estimated Blood Loss 50 / 50 Other: # Voids 4 Date of Last Bowel Movement 11/22/18 11/22/18 # Bowel Movements 0 Narrative: GENERAL: Well-nourished, well-developed patient. SKIN: Warm and dry. HEAD: Normocephalic. EYES: No scleral icterus. No injection or drainage. NECK: Supple, trachea midline. No JVD or lymphadenopathy. CARDIOVASCULAR: Regular rate and rhythm without murmurs, gallops, or rubs. RESPIRATORY: Breath sounds equal bilaterally. No accessory muscle use. GASTROINTESTINAL: Abdomen soft, non-tender, nondistended. MUSCULOSKELETAL: No cyanosis. Left lower extremity immobilizer in place. Moves all toes. BACK: Nontender without obvious deformity. No CVA tenderness. Results Labs CBC & Chem 7: 11/26/18 04:18 11/22/18 06:13 Assessment and Plan Plan Ms. Harper is a 53 y/o female with a history of anxiety, PTSD, bipolar disorder, COPD, cervical and ovarian cancer s/p radiation and complete hysterectomy, chronic neck and back pain, fibromyalgia, and migraine headaches who was admitted for left tibial plateau fracture. Left lateral plateau fracture CT scan showed significant articular surface depression s/p ORIF on 11/25/[address] Mckeon Continue Percocet, morphine for pain management Orthopedics indicated discharge would be this Wednesday or Wednesday Appreciate orthopedics consult Psychiatric Patient has a history of anxiety, PTSD, bipolar disorder Continue home dose of Seroquel, Wellbutrin, Remeron, Xanax h/o chronic migraines Continue home dose Topamax h/o chronic pain, fibromyalgia, neuropathy Continue home dose Percocet, gabapentin, Flexeril h/o COPD No active exacerbation Continue home Singulair and add as needed duo nebs. DVT Prophylaxis Lovenox Progress Note: Quality VTE Deep Vein Thrombosis/Pulmonary Embolism Present on Admission: No
[2018-11-26] MEDS ORDERED: Ketorolac Inj 30 MG/ML (IVP) Vial IV.PUSH SCH (12:00)
[2018-11-26] MEDS: oxyCODONE/Acetaminophen 10/325 Tablet PO SCH ×3 (12:06→20:27)
[2018-11-26] MEDS: Montelukast 10 MG Tablet PO SCH (17:19)
[2018-11-26] MEDS: Mirtazapine 15 MG Tablet PO SCH (20:25)
[2018-11-26] MEDS: Topiramate 100 MG Tablet PO SCH (20:26)
[2018-11-27] MEDS: ceFAZolin 2 GM Premix Inj 2 GM/50 ML PIGGYBACK IV.SIG SCH ×2 (00:26→08:28)
[2018-11-27] MEDS: oxyCODONE/Acetaminophen 10/325 Tablet PO SCH ×6 (00:26→21:10)
[2018-11-27] MEDS: Morphine Inj 4 MG/ML Vial IV.PUSH PRN ×4 (03:35→22:12)
--- NOTE | 2018-11-27 08:14 | P.PNIM ---
Subjective Interval history: f/u; left tibia fracture in no acute distress. pain to the left leg is moderate in intensity. had a BM yesterday. Physical Exam Vital signs: Vital Signs 11/26/18 09:10 11/26/18 09:11 11/26/18 09:40 Temperature Pulse Rate Respiratory Rate 18 18 18 Blood Pressure Pulse Oximetry 11/26/18 12:53 11/26/18 12:54 11/26/18 15:12 Temperature Pulse Rate Respiratory Rate 18 18 18 Blood Pressure Pulse Oximetry 11/26/18 16:00 11/26/18 17:07 11/26/18 17:37 Temperature 98.3 F Pulse Rate 99 H Respiratory Rate 20 18 18 Blood Pressure 118/59 L Pulse Oximetry 99 11/26/18 19:53 11/26/18 20:30 11/26/18 21:49 Temperature 98.2 F Pulse Rate 98 H Respiratory Rate 18 18 18 Blood Pressure 109/61 Pulse Oximetry 98 11/27/18 00:10 11/27/18 03:00 Temperature 98.6 F Pulse Rate Respiratory Rate 18 18 Blood Pressure 101/56 L Pulse Oximetry 96 Intake & Output 11/26/18 11/27/18 11/27/18 18:59 06:59 18:59 Intake Total 600 / 600 50 / 50 Balance 600 / 600 50 / 50 Weight 68.4 kg Intake: IV 600 / 600 50 / 50 Vancomycin Inj 1,000 MG In NS 500 / 500 Inj 250 ML @ 250 mls/hr IV.SIG Q12H [facility] Rx#:[id number] Ancef 2 GM Premix Inj 2 gm In 100 / 100 50 / 50 50 ml @ 100 mls/hr IV.SIG Q8H [facility] Rx#:[id number] Other: # Voids 3 2 Date of Last Bowel Movement 11/26/18 11/26/18 # Bowel Movements 1 Constitutional no acute distress Routine Respiratory Exam Present CTA bilaterally Routine Cardiovascular Exam Present RRR Routine Abdominal Exam Present soft Routine Extremities Exam Comments: left leg in immobilizer. Routine Neurological Exam Present alert and oriented X3 Results Labs CBC & Chem 7: 11/26/18 04:18 11/22/18 06:13 Assessment and Plan Plan A/P Left lateral plateau fracture CT scan showed significant articular surface depression s/p ORIF on 11/25/2018 Continue Percocet, morphine for pain management appreciate orthopedics consult Psychiatric Patient has a history of anxiety, PTSD, bipolar disorder Continue home dose of Seroquel, Wellbutrin, Remeron, Xanax h/o chronic migraines Continue home dose Topamax h/o chronic pain, fibromyalgia, neuropathy Continue home dose Percocet, gabapentin, Flexeril h/o COPD No active exacerbation Continue home Singulair and add as needed duo nebs. DVT Prophylaxis Lovenox Discharge Planning: discharge home when cleared by ortho. Progress Note: Quality VTE Deep Vein Thrombosis/Pulmonary Embolism Present on Admission: No
[2018-11-27 08:25] LABS: Hematocrit 29.2 % (35.0-46.0); Hemoglobin 9.9 gm/dL (11.6-15.3); Mean Corpuscular HGB Conc 33.7 % (32.0-36.0); Mean Corpuscular Hemoglobin 32.2 pg (27.0-34.0); Mean Corpuscular Volume 95.6 fL (80.0-100.0); Mean Platelet Volume 7.7 fL (7.0-11.0); Platelet Count 322 th/mm3 (150-450); Red Blood Count 3.06 mil/mm3 (4.00-5.30); Red Cell Distribution Width 12.5 % (11.6-17.2); White Blood Count 7.1 th/mm3 (4.0-11.0)
[2018-11-27] MEDS: Gabapentin 300 MG Capsule PO SCH ×3 (08:26→17:13)
[2018-11-27] MEDS: buPROPion 150 MG 12 HR Tablet PO SCH ×2 (08:26→21:09)
[2018-11-27] MEDS: Calcium/Vitamin D 250/125 MG Tablet PO SCH ×3 (08:26→17:12)
[2018-11-27] MEDS: Fenofibrate 145 MG Tablet PO SCH (08:26)
[2018-11-27] MEDS: QUEtiapine 25 MG Tablet PO SCH ×3 (08:27→21:10)
[2018-11-27 08:58] LABS: Calcium 7.9 mg/dL (8.5-10.1); Carbon Dioxide 25.2 meq/L (21.0-32.0); Potassium 3.5 meq/L (3.5-5.1)
--- NOTE | 2018-11-27 09:01 | P.PNOP ---
Subjective Interval history: pain better. Physical Exam Vital signs: Vital Signs 11/26/18 09:10 11/26/18 09:11 11/26/18 09:40 Temperature Pulse Rate Respiratory Rate 18 18 18 Blood Pressure Pulse Oximetry 11/26/18 12:53 11/26/18 12:54 11/26/18 15:12 Temperature Pulse Rate Respiratory Rate 18 18 18 Blood Pressure Pulse Oximetry 11/26/18 16:00 11/26/18 17:07 11/26/18 17:37 Temperature 98.3 F Pulse Rate 99 H Respiratory Rate 20 18 18 Blood Pressure 118/59 L Pulse Oximetry 99 11/26/18 19:53 11/26/18 20:30 11/26/18 21:49 Temperature 98.2 F Pulse Rate 98 H Respiratory Rate 18 18 18 Blood Pressure 109/61 Pulse Oximetry 98 11/27/18 00:10 11/27/18 03:00 11/27/18 08:00 Temperature 98.6 F 98.0 F Pulse Rate 93 H Respiratory Rate 18 18 18 Blood Pressure 101/56 L 124/67 Pulse Oximetry 96 100 Intake & Output 11/26/18 11/27/18 11/27/18 18:59 06:59 18:59 Intake Total 600 / 600 50 / 50 Balance 600 / 600 50 / 50 Weight 68.4 kg Intake: IV 600 / 600 50 / 50 Vancomycin Inj 1,000 MG In NS 500 / 500 Inj 250 ML @ 250 mls/hr IV.SIG Q12H [facility] Rx#:[id number] Ancef 2 GM Premix Inj 2 gm In 100 / 100 50 / 50 50 ml @ 100 mls/hr IV.SIG Q8H [facility] Rx#:[id number] Other: # Voids 3 2 Date of Last Bowel Movement 11/26/18 11/26/18 # Bowel Movements 1 Narrative: in bed, nad dressing c/d/i neg homans nvi Results - Labs CBC & Chem 7: 11/27/18 07:32 11/27/18 07:32 Laboratory Results - last 24 hr 11/27/18 11/27/18 07:32 07:32 WBC 7.1 RBC 3.06 L Hgb 9.9 L Hct 29.2 L MCV 95.6 MCH 32.2 MCHC 33.7 RDW 12.5 Plt Count 322 MPV 7.7 Sodium 146 H Potassium 3.5 Chloride 113 H Carbon Dioxide 25.2 Anion Gap 8 BUN 15 Creatinine 0.95 Estimated GFR 61 L Random Glucose 95 Calcium 7.9 L Assessment and Plan - Ortho Post Op Day # 2 - Assessment and Plan 1) Left Tibial Plateau Fracture s/p orif left tibia plateau fx pod #2 -Continue to remain strictly nonweightbearing and elevate the leg at all times -Discharge home Wednesday or Wednesday - cleared by ortho -Physical therapy, nonweightbearing left leg, no leg lifts, passive range of motion 0-90 degrees -Xarelto Rx -Follow-up with Dr. Collazo in 2 weeks
[2018-11-27] MEDS: Enoxaparin Inj 30 MG/0.3 ML Syringe SQ SCH (09:24)
[2018-11-27] MEDS: Montelukast 10 MG Tablet PO SCH (17:13)
[2018-11-27] MEDS: Topiramate 100 MG Tablet PO SCH (21:08)
[2018-11-27] MEDS: ALPRAZolam 0.5 MG Tablet PO PRN (21:09)
[2018-11-27] MEDS: Mirtazapine 15 MG Tablet PO SCH (21:09)
[2018-11-28] MEDS: oxyCODONE/Acetaminophen 10/325 Tablet PO SCH ×3 (00:44→09:03)
[2018-11-28] MEDS: Morphine Inj 4 MG/ML Vial IV.PUSH PRN (03:19)
[2018-11-28 05:04] VITALS: O2SAT 98
--- NOTE | 2018-11-28 06:59 | P.PNOP ---
Subjective Interval history: Sitting bedside on commode. States that she is continued to be nonweightbearing on the left lower extremity Physical Exam Vital signs: Vital Signs 11/27/18 08:00 11/27/18 10:44 11/27/18 12:00 Temperature 98.0 F 98.3 F Pulse Rate 93 H 95 H Respiratory Rate 18 18 18 Blood Pressure 124/67 137/76 Pulse Oximetry 100 100 11/27/18 12:50 11/27/18 14:32 11/27/18 16:00 Temperature 97.7 F Pulse Rate 93 H Respiratory Rate 18 18 18 Blood Pressure 115/64 Pulse Oximetry 99 11/27/18 17:43 11/27/18 20:08 11/27/18 22:11 Temperature 98.2 F Pulse Rate 98 H Respiratory Rate 18 18 18 Blood Pressure 143/77 H Pulse Oximetry 99 11/27/18 23:27 11/28/18 03:34 11/28/18 03:40 Temperature 99 F 97.8 F Pulse Rate 100 H 87 Respiratory Rate 18 20 20 Blood Pressure 155/74 H 145/75 H Pulse Oximetry 99 98 Intake & Output 11/27/18 11/27/18 11/28/18 06:59 18:59 06:59 Intake Total 50 / 50 50 / 50 960 / 960 Balance 50 / 50 50 / 50 960 / 960 Weight 68.4 kg 66.5 kg Intake: IV 50 / 50 50 / 50 Ancef 2 GM Premix Inj 2 gm In 50 / 50 50 / 50 50 ml @ 100 mls/hr IV.SIG Q8H [facility] Rx#:[id number] Oral 960 / 960 Other: # Voids 2 2 Date of Last Bowel Movement 11/26/18 11/26/18 11/27/18 Narrative: Left lower extremity: Clean dry dressings intact. Knee immobilizer in place. Intact sensation distally with active movement of ankle and toes. Good capillary refills and distal pulses Results - Labs CBC & Chem 7: 11/27/18 07:32 11/27/18 07:32 Laboratory Results - last 24 hr 11/27/18 11/27/18 07:32 07:32 WBC 7.1 RBC 3.06 L Hgb 9.9 L Hct 29.2 L MCV 95.6 MCH 32.2 MCHC 33.7 RDW 12.5 Plt Count 322 MPV 7.7 Sodium 146 H Potassium 3.5 Chloride 113 H Carbon Dioxide 25.2 Anion Gap 8 BUN 15 Creatinine 0.95 Estimated GFR 61 L Random Glucose 95 Calcium 7.9 L Assessment and Plan - Assessment and Plan 1) Left Tibial Plateau Fracture s/p orif left tibia plateau fx pod #3 -Continue to remain strictly nonweightbearing and elevate the leg at all times -Discharged home today Case management for home health care with dressing changes and physical therapy -Physical therapy, nonweightbearing left leg, no leg lifts, passive range of motion 0-90 degrees -Xarelto Rx, on chart. Pain medication as written from pain management -Follow-up with Dr. Collazo in 2 weeks
[2018-11-28] MEDS: buPROPion 150 MG 12 HR Tablet PO SCH (09:02)
[2018-11-28] MEDS: Fenofibrate 145 MG Tablet PO SCH (09:04)
[2018-11-28] MEDS: Calcium/Vitamin D 250/125 MG Tablet PO SCH (09:04)
[2018-11-28] MEDS: ALPRAZolam 0.5 MG Tablet PO PRN (09:04)
[2018-11-28] MEDS: Gabapentin 300 MG Capsule PO SCH (09:04)
[2018-11-28] MEDS: QUEtiapine 25 MG Tablet PO SCH (09:04)
--- NOTE | 2018-11-28 10:18 | P.DCO ---
- Physical Therapy Physical Therapy: Gait training, Safety evaluation Left Lower Extremity Weight Bearing: Non-weight bearing, No strengthening, No quad sets Left Lower Extremity Range of Motion: Passive ROM - Nursing Dressing changes: Daily dressing change, José Antonio wrap, 4x4s, Xeroform - Case Management Consult Case Management Consult-Home Health: Yes - Certification Need for Home Health services: I have seen patient Emely Harper on 11/28/18. My clinical findings support the need for the requested home health care services because: Need for Home Health Services: Limited mobility due to disease progression Homebound Certification: I certify that my clinical findings support that this patient is homebound because: Homebound Certification: Post-op weakness
--- NOTE | 2018-11-28 10:30 | P.PNIM ---
Subjective Interval history: in no acute distress. pain is controlled. wants to go home today. Physical Exam Vital signs: Vital Signs 11/27/18 10:44 11/27/18 12:00 11/27/18 12:50 Temperature 98.3 F Pulse Rate 95 H Respiratory Rate 18 18 18 Blood Pressure 137/76 Pulse Oximetry 100 11/27/18 14:32 11/27/18 16:00 11/27/18 17:43 Temperature 97.7 F Pulse Rate 93 H Respiratory Rate 18 18 18 Blood Pressure 115/64 Pulse Oximetry 99 11/27/18 20:08 11/27/18 22:11 11/27/18 23:27 Temperature 98.2 F 99 F Pulse Rate 98 H 100 H Respiratory Rate 18 18 18 Blood Pressure 143/77 H 155/74 H Pulse Oximetry 99 99 11/28/18 03:34 11/28/18 03:40 11/28/18 08:00 Temperature 97.8 F 97.9 F Pulse Rate 87 86 Respiratory Rate 20 20 16 Blood Pressure 145/75 H 140/88 Pulse Oximetry 98 98 Intake & Output 11/27/18 11/28/18 11/28/18 18:59 06:59 18:59 Intake Total 50 / 50 960 / 960 Balance 50 / 50 960 / 960 Weight 66.5 kg Intake: IV 50 / 50 Ancef 2 GM Premix Inj 2 gm In 50 / 50 50 ml @ 100 mls/hr IV.SIG Q8H [facility] Rx#:[id number] Oral 960 / 960 Other: # Voids 2 Date of Last Bowel Movement 11/26/18 11/27/18 11/27/18 Constitutional no acute distress Routine Respiratory Exam Present CTA bilaterally Routine Cardiovascular Exam Present RRR Routine Abdominal Exam Present soft Routine Extremities Exam Comments: no pedal edema. Routine Neurological Exam Present alert and oriented X3 Results Labs CBC & Chem 7: 11/27/18 07:32 11/27/18 07:32 Assessment and Plan (1) Closed bicondylar fracture of left tibial plateau: Code(s): S82.142A - Displaced bicondylar fracture of left tibia, initial encounter for closed fracture Status: Acute Plan A/P Left lateral tibial plateau fracture CT scan showed significant articular surface depression s/p ORIF on 11/25/2018 cleared by ortho fos diacharge. Psychiatric Patient has a history of anxiety, PTSD, bipolar disorder Continue home dose of Seroquel, Wellbutrin, Remeron, Xanax h/o chronic migraines Continue home dose Topamax h/o chronic pain, fibromyalgia, neuropathy Continue home dose Percocet, gabapentin, Flexeril h/o COPD No active exacerbation Continue home Singulair and add as needed duo nebs. DVT Prophylaxis Lovenox Discharge Planning: discharge home today with f/u with pcp and ortho. see med list. d/w the patient, RN and case management. [facility] was consulted before discharge. Progress Note: Quality VTE Deep Vein Thrombosis/Pulmonary Embolism Present on Admission: No
--- NOTE | 2018-11-28 10:34 | P.DS ---
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 she underwent ORIF. post-op course was uneventful. she will be discharged home with f/u by pcp and ortho. Time Spent with Patient Total time spent providing and/or coordinating discharge services: Less than 30 minutes Quality: VTE Deep Vein Thrombosis/Pulmonary Embolism Present on Admission: No Exam Narrative Exam Narrative: patient in no acute distress. S1/S2 heard/ abdomen is soft/ bilateral air entry present/left lower extremity covered with clean dressing/ patient is awake and fully oriented. Results Procedures completed during hospitalization: ORIF left lateral tibial plateau fracture. Impressions ITS Impressions Knee X-Ray 11/25/18 00:00 CONCLUSION: Satisfactory operative appearance Discharge Plan Discharge Disposition Patient Disposition: Disch W/Home Health Service Discharge Condition Condition: Good Discharge Order Discharge Orders: Orthopedic Clear for Discharge (Routine); Ordered 11/28/18 Ordered By: Mike Trinidad Physicians Team Primary Care Provider: DAISY, Attending Provider: Saida Greenfield Other Providers: Nathaniel Noriega ; Juan Luis De La Vega Rxs /Orders / Referrals /Forms Prescriptions: New rivaroxaban [Xarelto] 10 mg Tablet 10 mg PO DAILY Qty: 14 RF: 0 No Action quetiapine [Seroquel] 25 mg Tablet 25 mg PO BID RF: 0 cyclobenzaprine 10 mg Tablet 10 mg PO TID PRN (Reason: Muscle Spasm) RF: 0 verapamil 40 mg Tablet 40 mg PO TID RF: 0 alprazolam 0.5 mg Tablet 0.5 mg PO BID PRN (Reason: Anxiety) RF: 0 gabapentin 300 mg Capsule 300 mg PO TID RF: 0 montelukast 10 mg Tablet 10 mg PO QPM RF: 0 bupropion HCl 300 mg Tablet Extended Release 24 Hr 300 mg PO QAM RF: 0 topiramate 50 mg Tablet 150 mg PO HS RF: 0 mirtazapine 7.5 mg Tablet 45 mg PO HS RF: 0 quetiapine [Seroquel] 50 mg Tablet 250 mg PO HS RF: 0 fenofibrate 150 mg Capsule 145 mg PO DAILY RF: 0 oxycodone-acetaminophen [Percocet] 10-325 mg Tablet 1 tab PO Q4-6H MDD 4 PRN (Reason: Pain) RF: 0 Ambulatory Orders / Order Sets / DME: Walker With Front Wheels (1 each) (Routine) Location: Determined by Patient Ordered By: Mike Trinidad Wheelchair (1 each) (Routine) Location: Determined by Patient Ordered By: Mike Trinidad Referrals: Juan Luis De La Vega MD [Physician] - See Instructions (2 weeks) UNKNOWN, [Primary Care Provider] - See Instructions Discharge Instructions Patient Printed Instructions: ORIF of a Leg Fracture (DC) Status ED Status: Left Department
[2018-11-28 12:46] VITALS: BP 136/65; PULSE 95; RESP 18; TEMP 98.1
== END 2018-11-28 13:13 | disposition home health service (06) | DRG 494 ==
LOC: NEDAMB 22:10 → NEDA 22:35 → N07 23:35 → N06 11-25 09:38
PROVIDERS: ADMIT Internal Medicine; ATTEND Internal Medicine
CPT/HCPCS: 73562; 76000; 76937; 80048; 85014; 85018; 85025; 85027; 93005; 94150; 94640; 94664; 94665; 97110; 97116; 97161; 97164; 97530; 99285; C1713; C1776; J0131; J0690; J1100; J1580; J1650; J1885; J2250; J2270; J2310; J2405; J2704; J3010; J3370; J7030; J7050; J7120; L1830